=== PATIENT | female | born 1975 | race Asian ===

== ENCOUNTER → 2019-11-30 15:03 | Outpatient (CLI) | payer OTHER, SELFPAY ==
--- NOTE | ~2019-11-30 | MM_ITS ---
EXAMINATION: MM screening [facility] BI w thai HISTORY: Screening mammogram TECHNIQUE: Craniocaudal and mediolateral oblique 3-D tomosynthesis images were obtained and synthetic 2-D images were generated. CAD analysis was submitted and interpreted. COMPARISON: Comparison to multiple prior studies sequentially, with oldest reviewed study dated 12/12. BREAST PARENCHYMAL COMPOSITION: The breasts are heterogeneously dense, which may obscure small masses . FINDINGS: There are benign bilateral breast calcifications. There is no evidence of suspicious mass, calcification, or architectural distortion to suggest malignancy in either breast. There has been no suspicious interval change. IMPRESSION: 1. No mammographic evidence of malignancy. 2. Recommend routine screening mammography in one year. BI-RADS Category 2: Benign finding(s). Reviewed, dictated and finalized at location A. L CAMPAIGN SPECIALIST
== END ==
PROVIDERS: Visit Provider Obstetrics & Gynecology Gynecology
DX: Z12.31 Encounter for screening mammogram for malignant neoplasm of breast (principal)
CPT/HCPCS: 77063; 77067

== ENCOUNTER → 2020-11-08 08:30 | Outpatient (CLI) | payer OTHER, SELFPAY ==
--- NOTE | ~2020-11-08 | US_ITS ---
EXAMINATION: US abdomen complete DATE: 11/08/2020 09:16 INDICATION: Abnormal liver function tests. Right upper quadrant abdominal pain. TECHNIQUE: Multiple grayscale and Doppler ultrasound images of the abdomen were obtained. COMPARISON: Ultrasound 10/03/2019 FINDINGS: The visualized portions of the head, body, and tail of the pancreas are normal. Abdominal a nazia is normal in caliber. The liver is normal without focal lesion. There is normal flow in main por velia vein. The inferior vena cava is normal. The gallbladder is normal in size. No gallstones or gallb ladder wall thickening. There was no sonographic Avery sign. The common duct is normal and measures 5 mm. The kidneys are normal in size. The spleen is normal in size. IMPRESSION: 1. Normal complete abdomen ultrasound. Reviewed, dictated and finalized at location A. ISH AS A SECOND LANGUAGE INSTRUCTOR
== END ==
PROVIDERS: PCP Emergency Medicine; Visit Provider Emergency Medicine
DX: K76.9 Liver disease, unspecified (principal)
CPT/HCPCS: 76700

== ENCOUNTER 2021-01-08 12:05 | Emergency (ER) | payer OTHER, SELFPAY ==
--- NOTE | ~2021-01-08 | CT_ITS ---
EXAMINATION: CT brain wo con EXAM DATE: 01/08/2021 14:13 INDICATION: Severe headache. TECHNIQUE: Spiral CT of the head was performed without contrast. Axial, coronal and sagittal images were reviewed. The dose-length product (DLP) for this examination was 605.33 mGy-cm. The exposure w as tailored according to patient size, and iterative reconstruction (ASIR) was used as additional dos e reduction technique. There is no prior study for comparison. FINDINGS: There is no acute intraparenchymal hemorrhage. No evidence of intraparenchymal brain mass lesion. No evidence of acute infarction. There is no mass effect or midline shift. The ventricles are normal in size. There are no extra-axial collections. There are no acute calvarial fractures. T he orbits are unremarkable. Soft tissue is unremarkable. The visualized sinuses and mastoid air john ls are well aerated. IMPRESSION: 1. No acute intracranial findings. Reviewed, dictated and finalized at location A.
[2021-01-08 12:45] VITALS: BP 116/72; PULSE 82; RESP 18; TEMP 36.6; O2SAT 98
--- NOTE | 2021-01-08 13:43 | ED.HA ---
HPI - Headache General Chief Complaint: Headache Stated Complaint: headache since wednesday Time Seen by Provider: 01/08/21 13:18 History of Present Illness HPI Narrative: Headahc e for the past 4 days . Circumferential. Pounding. Associated with nausea, vomiting, photophobia. Being treated for migraines by her PCP. Given imitrex, but its not working. She has not seen a neurologist or had any imaging done. No weakness, numbness, confusion, fever, vision change. Related Data Allergies Allergy/AdvReac Type Severity Reaction Status Date / Time ENVIRONMENTAL ALLERGENS Allergy Mild Uncoded 05/08/20 08:05 Review of Systems Review of Systems: All systems reviewed & are unremarkable except as noted in HPI and below PMFSH Social History Social History Gender identity (if verbalized by the patient): Female Exam Const: General: no acute distress and alert Orientation/consciousness: patient oriented x3 Other: uncomfortable HENMT: Head: normal to inspection Face and sinus: normal facial exam Eyes: Conjunctivae: conjunctivae normal Pupils: Equal, round and reactive pupils present EOM: EOMs intact bilaterally Neck: Neck: normal visual inspection Resp: Effort & Inspection: normal respiratory effort Cardio: Rate: regular rate Rhythm: regular rhythm GI: GI Palp: Yes Soft to palpation and No Tenderness to palpation present (GI) Neuro: General: patient oriented x3, no focal motor deficits and CN's II-XI intact bilaterally Speech: normal speech Gait exam (Neuro): Normal gait present Extrem: General: normal to inspection Course Vital Signs Vital signs: Vital Signs Temperature 36.6 C 01/08/21 12:45 Pulse Rate 82 01/08/21 12:45 Respiratory Rate 18 01/08/21 12:45 Blood Pressure 116/72 01/08/21 12:45 Pulse Oximetry 98 01/08/21 12:45 Temperature 36.6 C 01/08/21 12:45 Pulse Rate 76 01/08/21 15:09 Respiratory Rate 16 01/08/21 15:09 Blood Pressure 119/75 01/08/21 15:09 Pulse Oximetry 100 01/08/21 15:09 MDM - Headache MDM Narrative Medical decision making narrative: CT negative. Symptoms greatly improved after treatment. Differential Diagnosis Differential diagnosis: Likely migraine, tension headache, subarachnoid hemorrhage, headache and other (mass lesion) Imaging Data Radiologist's impression: ITS Impressions Head CT 01/08/21 14:15 IMPRESSION: 1. No acute intracranial findings. Discharge Plan Discharge Clinical Impression: Migraine Patient Disposition: Home, Self-Care Condition: Stable Instructions: Migraine Headache (ED) Follow-up/Referrals: Nader Patel MD [Primary Care Provider] -
--- NOTE | 2021-01-08 14:10 | PC.NURSE ---
Pt to ct, will medicate per provider order upon return.
--- NOTE | 2021-01-08 14:20 | PC.NURSE ---
Pt back from ct, rn at bedside.
[2021-01-08] MEDS: METOCLOPRAMIDE HCL INJ 10 MG/2 ML VIAL IV PUSH (14:29)
[2021-01-08] MEDS: SODIUM CHLORIDE 0.9% IV 1,000 ML 999 ML IV CONT (14:29)
[2021-01-08] MEDS: KETOROLAC 30 MG/ML VIAL (*BKC) IV PUSH (14:29)
[2021-01-08] MEDS: diphenhydrAMINE HCl INJ 50 MG/ML VIAL 25 MG IV PUSH (14:29)
--- NOTE | 2021-01-08 14:33 | PC.NURSE ---
Pt medicated per provider order at this time.
--- NOTE | 2021-01-08 14:45 | PC.NURSE ---
ABIGAIL perera at bedside discussing results with pt.
[2021-01-08 15:09] VITALS: BP 119/75; PULSE 76; RESP 16; O2SAT 100
== END 2021-01-08 15:10 | disposition home or self-care (01) ==
PROVIDERS: Emergency Provider Emergency Medicine; PCP Emergency Medicine
DX: G43.909 Migraine, unspecified, not intractable, without status migrainosus (principal)
CPT/HCPCS: 70450; 96365; 96375; 99284; J0131; J1200; J1885; J2765; J7030

== ENCOUNTER → 2021-05-08 10:06 | Outpatient (CLI) | payer OTHER, SELFPAY ==
--- NOTE | ~2021-05-08 | MM_ITS ---
EXAMINATION: MM screening [facility] BI w thai HISTORY: Screening TECHNIQUE: Craniocaudal and mediolateral oblique 3-D tomosynthesis images were obtained and synthetic 2-D images were generated. CAD analysis was submitted and interpreted. COMPARISON: Comparison to multiple prior studies sequentially, with oldest reviewed study dated 07/04. BREAST PARENCHYMAL COMPOSITION: The breasts are heterogeneously dense, which may obscure small masses . FINDINGS: There is no evidence of suspicious mass, calcification, or architectural distortion to sugg est malignancy in either breast. There has been no suspicious interval change. IMPRESSION: 1. No mammographic evidence of malignancy. 2. Recommend routine screening mammography in one year. BI-RADS Category 1: Negative Reviewed, dictated and finalized at location A.
== END ==
PROVIDERS: PCP Emergency Medicine; Visit Provider Obstetrics & Gynecology Gynecology
DX: Z12.31 Encounter for screening mammogram for malignant neoplasm of breast (principal)
CPT/HCPCS: 77063; 77067

== ENCOUNTER 2021-06-02 07:34 | Emergency (ER) | payer OTHER, SELFPAY ==
[2021-06-02 07:40] VITALS: BP 109/79; PULSE 96; RESP 15; TEMP 36.2; O2SAT 100
--- NOTE | 2021-06-02 09:30 | ED.WOUNDLAC ---
HPI - Wound/Laceration General Chief Complaint: Wound/Laceration Stated Complaint: dog bite Time Seen by Provider: 06/02/21 09:02 Source: patient Mode of arrival: ambulatory Limitations: no limitations History of Present Illness HPI narrative: This is a 46 year old female that presents to the ER for dog bite to the right hand sustained just prior to arrival. Reports she was walking in her neighborhood and two dogs ran up from behind her and one of them bit her right hand. Reports pain to the area. She is unsure of the dogs vaccination status as the owners put the dogs in the car and drove away after. She is not up to date on tetanus. Denies fever, decreased ROM or numbness. Related Data Allergies Allergy/AdvReac Type Severity Reaction Status Date / Time ENVIRONMENTAL ALLERGENS Allergy Mild Unknown Uncoded 06/02/21 07:42 Review of Systems Review of Systems: CONSTITUTIONAL: Denies fever SKIN: Reports dog bite MUSCULOSKELETAL: Denies joint pain, or myalgia. NEUROLOGIC: Denies numbness All systems reviewed & are unremarkable except as noted in HPI and below PMFSH Past Medical History Medical History (Updated 06/02/21 @ 10:49 by Elvi Guan PA-C) History of hyperlipidemia Social History Social History (Updated 06/02/21 @ 09:33 by Elvi Guan PA-C) Smoking status: Never smoker Gender identity (if verbalized by the patient): Female Exam Narrative: GENERAL: Well-appearing, well-nourished, and in no acute distress. HEAD: Normocephalic, atraumatic. EYES: EOMI. EXTREMITIES: Normal range of motion. No edema or obvious deformity. Normal radial pulses. Normal sensation. Very small (0.5cm) puncture wound to the right third finger distal phalanx palmar surface. The wound just puncture the skin SKIN: Warm, dry, no rash. NEURO: No focal deficits. Alert and oriented x3. PSYCH: Normal mood and affect Course Consultations Consultation #1: Spoke with Malina Phillips about patient who recommends she contact [facility] for further management Date: 06/02/21 Time: 10:44 Vital Signs Vital signs: Vital Signs Temperature 97.1 F L 06/02/21 07:40 Pulse Rate 96 06/02/21 07:40 Respiratory Rate 15 06/02/21 07:40 Blood Pressure 109/79 06/02/21 07:40 Pulse Oximetry 100 06/02/21 07:40 Temperature 97.1 F L 06/02/21 07:40 Pulse Rate 96 06/02/21 07:40 Respiratory Rate 15 06/02/21 07:40 Blood Pressure 109/79 06/02/21 07:40 Pulse Oximetry 100 06/02/21 07:40 MDM - Wound/Laceration MDM Narrative Medical decision making narrative: Patient presents to the emergency department for dog bite sustained just prior to arrival. It was a known dog in her neighborhood. Although she was not able to asked the woodworking shop hand if the dog was up-to-date on its vaccinations. Patient was not up-to-date on tetanus. So she was updated on this today. Her wound was cleansed and covered with a bandage. There is a very minor wound that just punctures the skin on the right third finger. I did speak with Malina Phillips about patient who recommends she contact animal control for further management. Patient is stable and felt appropriate for further outpatient evaluation. She was given warnings to return to the ER Critical Care Time Critical Care Time Critical Care Time: No Discharge Plan Discharge Clinical Impression: Dog bite Qualifiers: Encounter type: initial encounter Qualified Code(s): W54.0XXA - Bitten by dog, initial encounter Patient Disposition: Home, Self-Care Condition: Stable Instructions: Animal Bite (ED) Additional Instructions: Return to the emergency department if you experience fever, redness or swelling of your wound, abnormal drainage from your wound, or any other symptoms that are concerning to you. Apply antibiotic ointment daily. Do not soak the wound. Clean with mild soap and water daily Call [facility] Follow-up with your primary care doctor ligia
[2021-06-02] MEDS: TETANUS,DIPHTHERIA,AC PERTUSSIS ADULT (0.5 ML) BOOSTRIX IM (09:46)
== END 2021-06-02 11:05 | disposition home or self-care (01) ==
PROVIDERS: Emergency Provider Emergency Medicine; PCP Emergency Medicine
DX: S61.252A Open bite of right middle finger without damage to nail, initial encounter (principal); Z23 Encounter for immunization; E78.5 Hyperlipidemia, unspecified; W54.0XXA Bitten by dog, initial encounter
CPT/HCPCS: 90471; 90715; 99282

== ENCOUNTER → 2021-09-23 14:24 | Outpatient (CLI) | payer OTHER, SELFPAY ==
--- NOTE | ~2021-09-23 | US_ITS ---
EXAMINATION: US transvaginal DATE: 09/23/2021 15:01 INDICATION: Postmenopausal bleeding Comparison:No prior studies for comparison. TECHNIQUE: Multiple transabdominal and endovaginal sonographic images of the pelvis performed. FINDINGS: The uterus measures 8 x 3 x 3.8 cm. There is a 4 mm echogenic focus consistent with calcifi cation of the myometrium. The endometrial complex measures 2 mm. The right ovary measures 2.3 x 2 x 1.4 cm and the left ovary measures 2.2 x 1 x 1.4 cm. There are sm all follicles in each ovary. Normal doppler signal in both ovaries. There is no free fluid in the pelvis. There are no abnormal masses seen on either side. IMPRESSION: 1. Unremarkable pelvic ultrasound. Reviewed, dictated and finalized at location A. NTORY PLANNER
== END ==
PROVIDERS: PCP Emergency Medicine; Visit Provider Nurse Practitioner
DX: N95.0 Postmenopausal bleeding (principal); N83.02 Follicular cyst of left ovary; N83.01 Follicular cyst of right ovary
CPT/HCPCS: 76830

== ENCOUNTER 2022-08-07 14:59 | Emergency (ER) | payer OTHER, SELFPAY ==
[2022-08-07 15:08] VITALS: BP 103/70; PULSE 66; RESP 16; TEMP 36.9; O2SAT 100
--- NOTE | 2022-08-07 15:14 | ED.EAR ---
HPI - Ear Problem General Chief complaint: Ear Stated complaint: r earlobe redness/swelling Time Seen by Provider: 08/07/22 15:14 Source: patient Mode of arrival: ambulatory Limitations: no limitations History of Present Illness HPI Narrative: 47-year-old female presents with redness, swelling, tenderness to right earlobe. The patient had ears pierced approximately 2 weeks ago. Has been using cleaning solution that was given to her at facility. Denies drainage. Has not removed the earring. All systems reviewed and negative except as noted above. Related Data Home Medications Medication Instructions Recorded Confirmed rosuvastatin 10 mg tablet 10 mg PO DAILY 08/07/22 08/07/22 Allergies Allergy/AdvReac Type Severity Reaction Status Date / Time ENVIRONMENTAL ALLERGENS Allergy Mild Unknown Uncoded 08/07/22 15:07 Review of Systems Review of Systems: CONSTITUTIONAL: Denies fever, chills, or sweats. EYES: Denies visual changes, redness, or discharge. ENT: Denies rhinorrhea, congestion, sore throat, or otalgia. CARDIOVASCULAR: Denies chest pain, palpitations, or edema. RESPIRATORY: Denies cough or dyspnea. GASTROINTESTINAL: Denies abdominal pain, nausea, vomiting, or diarrhea. GENITOURINARY: Denies dysuria or hematuria. SKIN: Denies rash or itching. Reports redness, swelling, tenderness to right earlobe. MUSCULOSKELETAL: Denies back pain, joint pain, or myalgia. NEUROLOGIC: Denies headache, numbness, or weakness. PSYCHIATRIC: Denies anxiety or depression. All other systems reviewed are negative, except as documented in HPI. [facility] Past Medical History Medical History (Updated 08/07/22 @ 15:13 by Elizabet Green NP) History of hyperlipidemia Social History Social History (Updated 06/02/21 @ 09:33 by Elvi Guan PA-C) Smoking status: Never smoker Gender identity (if verbalized by the patient): Female Comments At time of signature, agree with nursing past medical, surgical, social and family history. There is no relevant family history pertinent to the presenting complaint. Exam Narrative: GENERAL: This is a well-nourished, well-developed patient, in no apparent distress. HEAD: normocephalic, atraumatic. EYES: PERRL. Sclera clear/white. Vision is grossly intact. EARS: Mild erythema, swelling to right earlobe. No fluctuance concerning for abscess. No drainage noted. NOSE: External nose normal NECK: Neck supple, non-tender without lymphadenopathy, masses or thyromegaly. CARDIOVASCULAR: Regular rate and rhythm without murmurs, gallops, or rubs. RESPIRATORY: Clear to auscultation. Breath sounds equal bilaterally. No wheezes, rales, or rhonchi. SKIN: warm, Dry, intact with no suspicious lesions or rash, good texture and turgor. NEURO: awake, alert, and oriented to person, place and time. There were no obvious focal neurologic abnormalities. EXTREMITIES: No joint tenderness, effusion, or edema noted. Course Course Level of Care: Express Care Visit Vital Signs Vital signs: Vital Signs Temperature 36.9 C 08/07/22 15:08 Pulse Rate 66 08/07/22 15:08 Respiratory Rate 16 08/07/22 15:08 Blood Pressure 103/70 08/07/22 15:08 Pulse Oximetry 100 08/07/22 15:08 Temperature 36.9 C 08/07/22 15:08 Pulse Rate 66 08/07/22 15:08 Respiratory Rate 16 08/07/22 15:08 Blood Pressure 103/70 08/07/22 15:08 Pulse Oximetry 100 08/07/22 15:08 Review Medical Decision Making MDM Narrative Medical decision making narrative: Patient is aware of diagnosis, understands and agrees to treatment plan. Anticipatory guidance given. Patient agrees to follow-up as directed and is aware of reasons to seek care at the emergency department. Portions of this record may have been created with voice recognition software Mild erythema noted to right earlobe surrounding hearing. Will prescribe topical Bactroban. Recommend follow-up with PCP and removing hearing if symptoms not improving.
== END 2022-08-07 15:16 | disposition home or self-care (01) ==
PROVIDERS: Emergency Provider Nurse Practitioner Family; PCP Emergency Medicine
DX: H60.391 Other infective otitis externa, right ear (principal); E78.5 Hyperlipidemia, unspecified
CPT/HCPCS: 99213; G0463

== ENCOUNTER → 2022-12-11 13:27 | Outpatient (CLI) | payer OTHER, SELFPAY ==
--- NOTE | ~2022-12-11 | MM_ITS ---
EXAMINATION: MM screening [facility] BI w thai HISTORY: Screening mammogram TECHNIQUE: Craniocaudal and mediolateral oblique 3-D tomosynthesis images were obtained and synthetic 2-D images were generated. CAD analysis was submitted and interpreted. COMPARISON: 05/08/2021, 11/30/2019, 09/12/2018 bilateral screening mammogram examinations BREAST PARENCHYMAL COMPOSITION: The breasts are heterogeneously dense, which may obscure small masses . FINDINGS: Degenerative bilateral punctate benign-appearing microcalcifications. There is no evidence of suspicious mass, calcification, or architectural distortion to suggest malignancy in either breast . There has been no suspicious interval change. IMPRESSION: 1. No mammographic evidence of malignancy. 2. Recommend routine screening mammography in one year. BI-RADS Category 2: Benign finding(s). Reviewed, dictated and finalized at location B. RICAL CONTROL MACHINE OPERATOR
== END ==
PROVIDERS: PCP Emergency Medicine; Visit Provider Obstetrics & Gynecology Gynecology
DX: Z12.31 Encounter for screening mammogram for malignant neoplasm of breast (principal)
CPT/HCPCS: 77063; 77067

== ENCOUNTER → 2022-12-21 12:11 | Outpatient (CLI) | payer OTHER, SELFPAY ==
--- NOTE | ~2022-12-21 | DEXA_ITS ---
Bone Density Report Name: DERICK HEREDIA Age: 47 Sex: Female Ethnicity: White Date of : 1975 Indication: postmenopausal; Referring Provider: KEL, MICHAELA Study: Bone densitometry was performed. Exam Date: December 21, 2022 Accession number: [id number] Bone Density: Region BMD T-score Z-score Classification AP Spine (L1-L4) 0.936 -1.0 -0.3 Normal Femoral Neck (Left) 0.679 -1.5 -0.8 Osteopenia Total Hip (Left) 0.843 -0.8 -0.4 Normal Femoral Neck (Right) 0.708 -1.3 -0.6 Osteopenia Total Hip (Right) 0.849 -0.8 -0.3 Normal Total Hip Mean 0.846 -0.8 -0.4 Normal World Health Organization criteria for BMD impression classify patients as: Normal (T-score at or above -1.0), Osteopenia (T-score between -1.0 and -2.5), or Osteoporosis (T-score at or below -2.5). 10-year Fracture Risk(1): Major Osteoporotic Fracture 4.2% Hip Fracture 0.4% Reported Risk Factors: [place] (), Neck BMD=0.679, BMI=22.4 (1) FRAX(R) Version 3.08. Fracture probability calculated for an untreated patient. Fracture probability may be lower if the patient has received treatment. Clinical Information Provided by Patient: Has used the following medications: Vitamin D, Calcium Patient maximum height was 65 Menopause Age: 45 Drinks caffeinated beverages Onset of menses at age 12 Number of children 2 Impression: The patient has low bone mass, based on the Left Femoral Neck T-score. The patient has an estimated ten-year risk of hip fracture of 0.4% and an estimated ten-year risk of major fracture of 4.2%, based on the WHO FRAX algorithm. Discussion: BONE DENSITY IS LOW AT ONE OR MORE SKELETAL SITES. This patient's lowest T-score is low at one or more skeletal sites. It meets the World Health Organization's (WHO) criteria for ?low bone mass? (T-score between -1.0 and -2.5). The patient's 10-year risk of fracture as calculated by FRAX is less than the threshold where pharmacological therapy is recommended by the National Osteoporosis Foundation (NOF). However, all treatment decisions require clinical judgment and consideration of individual patient factors, including patient preferences, comorbidities, previous drug use, risk factors not captured in the FRAX model (e.g., frailty, falls, vitamin D deficiency, increased bone turnover, interval significant decline in bone density) and possible under or overestimation of fracture risk by FRAX. The patient should follow a healthful lifestyle (good nutrition with adequate calcium and vitamin D, and appropriate weight-bearing exercise). Follow-Up: Consider repeating this study in 2 to 3 years to reassess this patient's status, or sooner if there is some new clinical indication. Reported by: FALGUNI on 12/21/2022 12:28:00 PM.
== END ==
PROVIDERS: PCP Emergency Medicine; Visit Provider Nurse Practitioner
DX: Z78.0 Asymptomatic menopausal state (principal); M85.852 Other specified disorders of bone density and structure, left thigh; M85.851 Other specified disorders of bone density and structure, right thigh
CPT/HCPCS: 77080

== ENCOUNTER 2023-01-01 00:52 | Day surgery (SDC) | payer OTHER, SELFPAY ==
[2022-12-22 13:27] VITALS: BMI 24.1
[2023-01-01 11:08] VITALS: BP 103/57; PULSE 83; RESP 16; TEMP 36.4; O2SAT 98
[2023-01-01] MEDS: LACTATED RINGERS 1,000 ML 150 ML IV CONT (11:18)
--- NOTE | 2023-01-01 11:30 | WPDANESEPPF ---
Anes - Initial Pre Proc Eval Procedure: Operation Date: 01/01/23 12:00 Proposed Procedures p Screening Colonoscopy - Willie Blue MD Date/Time: 01/01/23 11:30 Surgeon: Willie Blue MD Pre Op Diagnosis: neoplasm screening Patient Data Age: 47 Gender: F Height: 1.63 m Weight: 57.5 kg Last Vital Signs Temp 97.5 F L 01/01/23 11:08 Pulse 83 01/01/23 11:08 Resp 16 01/01/23 11:08 BP 103/57 L 01/01/23 11:08 Pulse Ox 98 01/01/23 11:08 O2 Del Method Room Air 01/01/23 11:08 Allergies Allergy/AdvReac Type Severity Reaction Status Date / Time No Known Allergies Allergy Verified 01/01/23 11:07 Home Medications Medication Instructions Recorded Confirmed Type rosuvastatin 10 mg tablet 10 mg PO DAILY 08/07/22 01/01/23 History Patient hx anesthesia problems: none Family hx anesthesia problems: none Results Review: All pre-operative results and documents have been reviewed as part of the pre-operative evaluation. [facility] Past Medical History Medical History (Updated 08/08/22 @ 00:01 by Sparkle Perdue) History of hyperlipidemia Social History Social History (Updated 06/02/21 @ 09:33 by Elvi Guan PA-C) Smoking status: Never smoker Substance use type: does not use Living arrangements: with family Gender identity (if verbalized by the patient): Female Spiritual care concerns: No Anes - Eval Final PreProcedure Day of Procedure 01/01/23 11:30 Patient weight: normal Heart: regular rate and rhythm Lungs: clear to auscultation Airway: Mallampati scale class II Neurological: alert and oriented Last oral intake: >/= 8 hours ASA classification: II Emergent: no Anesthetic plan: proceed Anesthesia type and monitoring: general GIVS and standard monitoring Results Review: All pre-operative results and documents have been reviewed as part of the pre-operative evaluation. Informed Consent: The patient's anesthetic plan and its attendant risks and benefits were discussed with the patient/family/POA. Questions were solicited and answers provided to the satisfaction of the patient/family/POA.
[2023-01-01 11:45] VITALS: BP 93/59; PULSE 71; RESP 19; O2SAT 100
--- NOTE | 2023-01-01 11:46 | PM.HPGS ---
History of Present Illness History of Present Illness Consent: Risks, benefits, and alternatives have been discussed and questions answered. Patient agrees to proceed with procedure. Chief complaint: neoplasm screening Narrative: Kizzy Salcedo is a 47 year old female who was referred for colon cancer screening. Review of Systems Review of Systems: All systems reviewed & are unremarkable except as noted in HPI and below PMFSH Past Medical History Medical History History of hyperlipidemia Social History Social History Smoking status: Never smoker Substance use type: does not use Living arrangements: with family Gender identity (if verbalized by the patient): Female Spiritual care concerns: No Meds Home Medications and Allergies Home Medications Medication Instructions Recorded Confirmed Type rosuvastatin 10 mg tablet 10 mg PO DAILY 08/07/22 01/01/23 History Allergies Allergy/AdvReac Type Severity Reaction Status Date / Time No Known Allergies Allergy Verified 01/01/23 11:07 Vital Signs Vital Signs - 24 hr 01/01/23 11:08 Temperature 36.4 C L Pulse Rate 83 Respiratory Rate 16 Blood Pressure 103/57 L Pulse Oximetry 98 Oxygen Delivery Room Air Exam Const: General: alert Orientation/consciousness: patient oriented x3 Resp: Auscultation: clear to auscultation bilaterally Cardio: Rhythm: regular rhythm GI: GI Palp: Yes Soft to palpation and No Tenderness to palpation present (GI) Neuro: General: patient oriented x3 Assessment and Plan Assessment and plan (1) Colon cancer screening: Code(s): Z12.11 - Encounter for screening for malignant neoplasm of colon Status: Acute Assessment and Plan: Colonoscopy with possible biopsy or polypectomy or cautery or injection of substances.
[2023-01-01 11:55] VITALS: BP 113/64; PULSE 72; RESP 20; O2SAT 98
[2023-01-01 12:05] VITALS: BP 111/70; PULSE 62; RESP 18; O2SAT 99
== END 2023-01-01 12:16 | disposition home or self-care (01) ==
PROVIDERS: PCP Emergency Medicine; Referring Provider Obstetrics & Gynecology Gynecology; Visit Provider Internal Medicine Gastroenterology
PROC: 0DJD8ZZ Inspection of Lower Intestinal Tract, Via Natural or Artificial Opening Endoscopic (ICD-10-PCS; CPT 45378; principal; 2023-01-01 12:00)
DX: Z12.11 Encounter for screening for malignant neoplasm of colon (principal); K64.8 Other hemorrhoids; E78.5 Hyperlipidemia, unspecified
CPT/HCPCS: 45378; J2704; J7120

== ENCOUNTER → 2023-02-25 09:13 | Outpatient (CLI) | payer OTHER, SELFPAY ==
--- NOTE | ~2023-02-25 | US_ITS ---
EXAMINATION: US abdomen complete DATE: 02/25/2023 09:54 INDICATION: Upper abdominal pain. Right flank pain and back pain. TECHNIQUE: Multiple grayscale and Doppler ultrasound images of the abdomen were obtained. COMPARISON: Abdomen ultrasound 11/28/2020 FINDINGS: Abdominal aorta is normal in caliber. The visualized portions of the head, body, and tail o f the pancreas are normal. The liver is normal without focal lesion. No liver surface nodularity. The re is normal flow in main portal vein. The gallbladder is normal in size. No gallstones or gallbladde r wall thickening. There was no sonographic Avery sign. The common duct is normal and measures 3 mm. Inferior vena cava is normal. The spleen is normal in size. The kidneys are normal in size. IMPRESSION: 1. Normal complete abdomen ultrasound. Reviewed, dictated and finalized at location E.
== END ==
PROVIDERS: PCP Emergency Medicine; Visit Provider Emergency Medicine
DX: R31.21 Asymptomatic microscopic hematuria (principal); R80.9 Proteinuria, unspecified; R10.9 Unspecified abdominal pain
CPT/HCPCS: 76700

== ENCOUNTER → 2023-07-10 08:24 | Outpatient (CLI) | payer OTHER, SELFPAY ==
--- NOTE | ~2023-07-10 | US_ITS ---
US abdomen complete DATE: 07/10/2023 09:04 INDICATION: Upper abdominal pain TECHNIQUE: Real-time imaging and Doppler analysis of the abdomen COMPARISON: 02/25/2023 abdominal ultrasound examination FINDINGS: No hepatic or pancreatic space-occupying mass lesion. Normal hepatopedal portal venous flow direction. No gallstones or gallbladder wall thickening. Common bile duct measures 3.5 mm, normal. N o renal mass lesion or hydronephrosis. Normal splenic size. The abdominal aorta and inferior vena cav a are unremarkable. IMPRESSION: No significant abnormality Reviewed, dictated and finalized at Location A. Reviewed, dictated and finalized at location A. IMPRESSION: No significant abnormality
== END ==
PROVIDERS: PCP Obstetrics & Gynecology Gynecology; Visit Provider Emergency Medicine
DX: R10.10 Upper abdominal pain, unspecified (principal)
CPT/HCPCS: 76700

== ENCOUNTER 2023-11-08 17:11 | Emergency (ER) | payer OTHER, SELFPAY ==
[2023-11-08 17:16] VITALS: BP 94/60; PULSE 56; RESP 16; TEMP 36.8; O2SAT 100
--- NOTE | 2023-11-08 17:42 | ED.URI ---
HPI - URI/Sore Throat General Chief Complaint: Upper Respiratory Infection Stated Complaint: Sore Throat;Headache Time Seen by Provider: 11/08/23 17:30 Source: patient and RN notes reviewed Mode of arrival: ambulatory Limitations: no limitations History of Present Illness HPI Narrative: Patient presents today complaining of 5 day history of rhinorrhea, sore throat, body aches, headache, decreased appetite. Denies fever or cough. She has taken Tylenol with some mild relief. Son is sick with similar symptoms Related Data Home Medications Medication Instructions Recorded Confirmed rosuvastatin 10 mg tablet 10 mg PO DAILY 08/07/22 11/08/23 Allergies Allergy/AdvReac Type Severity Reaction Status Date / Time No Known Allergies Allergy Verified 11/08/23 17:36 Review of Systems Review of Systems: CONSTITUTIONAL: Denies fever, or sweats.+ body aches, chills EYES: Denies visual changes, redness, or discharge. ENT: Denies congestion, or otalgia.+ rhinorrhea, sore throat CARDIOVASCULAR: Denies chest pain, palpitations, or edema. RESPIRATORY: Denies cough or dyspnea. GASTROINTESTINAL: Denies abdominal pain, nausea, vomiting, or diarrhea.+ decreased appetite GENITOURINARY: Denies dysuria or hematuria. SKIN: Denies rash, itching, or wounds. MUSCULOSKELETAL: Denies back pain, joint pain, or myalgia. NEUROLOGIC: Denies numbness, tingling, or weakness.+ headache PSYCH: Denies depression or anxiety. PMFSH Past Medical History Medical History History of hyperlipidemia Social History Social History Smoking status: Never smoker Substance use type: does not use Living arrangements: with family Gender identity (if verbalized by the patient): Female Spiritual care concerns: No Comments At time of signature, I have reviewed and agree with nursing past medical, surgical, social and family history unless otherwise noted. Please see nursing chart for further information. There is no relevant family history pertinent to the presenting complaint Exam Narrative: GENERAL: Well-appearing, well-nourished, and in no acute distress. HEAD: Normocephalic, atraumatic. EYES: EOMI. No redness or drainage. Conjunctivae normal. ENT: Mucous membranes pink and moist. Nares congested with rhinorrhea. TMs normal bilaterally. Throat normal. Uvula midline. NECK: Normal AROM. Supple. No lymphadenopathy. CHEST: No respiratory distress. Clear to auscultation. HEART: Regular rate and rhythm. No murmur appreciated. EXTREMITIES: Normal range of motion. No edema. SKIN: Warm, dry, no rash. Capillary refill normal. Normal skin turgor. NEURO: No focal deficits. Alert and oriented x3. Gait steady. PSYCH: Normal affect. No signs of depression or anxiety. Course Course Level of Care: Express Care Visit Vital Signs Vital signs: Vital Signs Temperature 98.3 F 11/08/23 17:16 Pulse Rate 56 L 11/08/23 17:16 Respiratory Rate 16 11/08/23 17:16 Blood Pressure 94/60 L 11/08/23 17:16 Pulse Oximetry 100 11/08/23 17:16 Oxygen Delivery Room Air 11/08/23 17:16 Temperature 98.3 F 11/08/23 17:16 Pulse Rate 56 L 11/08/23 17:16 Respiratory Rate 16 11/08/23 17:16 Blood Pressure 94/60 L 11/08/23 17:16 Pulse Oximetry 100 11/08/23 17:16 Oxygen Delivery Room Air 11/08/23 17:16 Reviewed MDM - URI/Sore Throat MDM Narrative Medical decision making narrative: Testing negative. Son is positive for strep throat and influenza. Strep culture pending. Patient may have had influenza, but is currently testing negative. Discussed continuing [id number] medication and staying hydrated. Anticipatory guidance given. No prescription medications indicated at this time. Differential Diagnosis Differential diagnosis: Likely upper respiratory infection, sinusitis, viral infection, influe
== END 2023-11-08 18:13 | disposition home or self-care (01) ==
PROVIDERS: Emergency Provider Nurse Practitioner; PCP Emergency Medicine
DX: J11.1 Influenza due to unidentified influenza virus with other respiratory manifestations (principal); Z20.822 Contact with and (suspected) exposure to COVID-19; E78.5 Hyperlipidemia, unspecified
CPT/HCPCS: 87081; 87426; 87804; 87880; 99213; G0463

== ENCOUNTER → 2023-11-09 08:20 | Outpatient (CLI) | payer OTHER, SELFPAY ==
--- NOTE | ~2023-11-09 | MMUS_ITS ---
EXAMINATION: MM diagnostic shane BI w thai, US breast RT limited HISTORY: Pain and swelling of lateral right breast TECHNIQUE: ML, MLO and CC 3-D tomosynthesis images of both breasts were performed and synthetic 2-D i mages were generated. CAD analysis was submitted and interpreted. High resolution upper outer quadran t and lower outer quadrant right breast ultrasound was performed. COMPARISON: 12/11/2022, 05/08/2021, 11/30/2019 bilateral screening mammogram examinations BREAST PARENCHYMAL COMPOSITION: The breasts are heterogeneously dense, which may obscure small masses . FINDINGS: MAMMOGRAPHIC FINDINGS: Occasional scattered bilateral . Benign appearing punctate and circular microcalcifications are noted again. No suspicious mass or architectural distortion, malignant calcification, skin thickening or r etraction or significant new or developing density is detected. ULTRASOUND: No suspicious mass or shadowing, cyst or other sylvian sonographic abnormalities detected in the uppe r outer or lower outer quadrants of the right breast. IMPRESSION: 1. Benign finding; no mammographic or sonographic evidence of malignancy 2. Routine annual mammographic screening is recommended BI-RADS Category 2: Benign finding(s). Reviewed, dictated and finalized at location A. RACT ENGINEER IMPRESSION: 1. Benign finding; no mammographic or sonographic evidence of malignancy 2. Routine annual mammographic screening is recommended BI-RADS Category 2: Benign finding(s).
== END ==
PROVIDERS: PCP Nurse Practitioner; Visit Provider Nurse Practitioner
DX: R92.8 Other abnormal and inconclusive findings on diagnostic imaging of breast (principal)
CPT/HCPCS: 76642; 77062; 77066; G0279

== ENCOUNTER → 2023-11-09 08:28 | Outpatient (CLI) | payer OTHER, SELFPAY ==
--- NOTE | ~2023-11-09 | US_ITS ---
EXAMINATION: US transvaginal DATE: 11/09/2023 08:54 INDICATION: Family history of ovarian cancer TECHNIQUE: Multiple endovaginal sonographic images of the pelvis were obtained. COMPARISON: 07/24/2021 FINDINGS: The uterus measures 7.6 x 3.1 x 5.0 cm. The endometrial complex measures 2 mm. The left ova ry is not visualized however no left adnexal abnormality is seen. The right ovary measures 1.8 x 1.1 x 2.1 cm. There is normal vascular flow in the right ovary. There is no free fluid in the pelvis. IMPRESSION: 1. Unremarkable pelvic ultrasound. Reviewed, dictated and finalized at location L. TION TECHNICIAN
== END ==
PROVIDERS: PCP Nurse Practitioner; Visit Provider Nurse Practitioner
DX: Z80.41 Family history of malignant neoplasm of ovary (principal)
CPT/HCPCS: 76830

== ENCOUNTER 2023-12-24 07:47 | Outpatient (CLI) | payer OTHER, SELFPAY ==
--- NOTE | ~2023-12-24 | NM_ITS ---
EXAMINATION: NM hepatobiliary wo pharm DATE: 12/24/2023 10:08 INDICATION: Upper abdominal pain COMPARISON: None. TECHNIQUE: 1.8 mCi Tc-99m mebrofenin (Choletec) was administered intravenously. Scintigraphic images of the abdomen were obtained for one hour. At the 1 hour time point, the patient drank 8 oz Ensure, and imaging was continued for 60 minutes. Gallbladder ejection fraction was calculated by the technol ogist. FINDINGS: There is normal clearance of radiotracer from the blood pool. There is homogeneous tracer u ptake by the liver. Activity progresses to the bowel and gallbladder. The gallbladder ejection fract ion (GBEF) is 57%. Note that with this technique, normal GBEF >= 33%. IMPRESSION: 1. Normal hepatobiliary scan. Reviewed, dictated and finalized at location A.
== END 2023-12-24 07:48 | disposition home or self-care (01) ==
PROVIDERS: PCP Emergency Medicine; Visit Provider Emergency Medicine
DX: R10.10 Upper abdominal pain, unspecified (principal)
CPT/HCPCS: 78226; A9537

== ENCOUNTER 2024-05-15 15:49 | Emergency (ER) | payer OTHER, SELFPAY ==
--- NOTE | 2024-05-15 15:52 | ED.URI ---
HPI - URI/Sore Throat General Chief Complaint: Upper Respiratory Infection Stated Complaint: Covid/Strep Symptoms Time Seen by Provider: 05/15/24 15:51 Source: patient Mode of arrival: ambulatory Limitations: no limitations History of Present Illness HPI Narrative: Kizzy is a 48-year-old female patient presenting to the clinic today with complaints of sore throat, nasal congestion, cough for the past week. She reports she tested positive for COVID on Wednesday of last week. States she has had a sore throat for the past week but her son just tested positive for strep today so she wants to be tested. She denies any fever, chills, or body aches currently. Related Data Home Medications Medication Instructions Recorded Confirmed rosuvastatin 10 mg tablet 10 mg PO DAILY 08/07/22 11/08/23 nirmatrelvir 300 mg (150 mg ea PO 05/15/24 x2)-ritonavir 100 mg tablet,dose pack (Paxlovid) Allergies Allergy/AdvReac Type Severity Reaction Status Date / Time No Known Allergies Allergy Verified 05/15/24 16:12 Review of Systems Review of Systems: Pertinent positives per HPI. Patient denies any fever, chills, rash, headache, visual changes, dizziness,shortness of breath, chest pain, palpitations, nausea, vomiting, diarrhea, constipation, abdominal pain, or any urinary issues. PMFSH Past Medical History Medical History History of hyperlipidemia Social History Social History Smoking status: Never smoker Substance use type: does not use Living arrangements: with family Gender identity (if verbalized by the patient): Female Spiritual care concerns: No Comments At the time of my signature, I reviewed and agree with the nursing past medical, surgical, social, and family history. There is no relevant family history pertinent to the patient complaint. Exam Narrative: General: Well-developed, well nourished, in no apparent distress Head: Normocephalic, atraumatic Eyes: Pupils equally round and reactive to light bilaterally, EOM intact, sclera and conjunctive clear, no discharge, lids normal Ears: TMs intact and clear, ear canals clear, no drainage, grossly hearing normal. Nose: Nares patent, clear nasal discharge, no inflammation, no sinus tenderness. Mouth: Oropharynx without lesions or masses, good dentition, MMM. Neck: Supple, trachea midline, no enlargement of anterior or posterior cervical nodes, no thyroid masses or goiter palpable. Cardio: Regular rate and rhythm, s1 and s2 normal, no murmur appreciated. Resp: Clear to auscultation bilaterally anteriorly and posteriorly, no rhonchi, rales, wheezing or rubs Course Course Emergency Course: Portions of this record may have been created with voice recognition software. Level of Care: Express Care Visit Vital Signs Vital signs: Vital Signs Temperature 36.3 C L 05/15/24 16:30 Pulse Rate 71 05/15/24 16:30 Respiratory Rate 16 05/15/24 16:30 Blood Pressure 93/70 L 05/15/24 16:30 Pulse Oximetry 100 05/15/24 16:30 Temperature 36.3 C L 05/15/24 16:30 Pulse Rate 71 05/15/24 16:30 Respiratory Rate 16 05/15/24 16:30 Blood Pressure 93/70 L 05/15/24 16:30 Pulse Oximetry 100 05/15/24 16:30 Vital signs reviewed MDM - URI/Sore Throat MDM Narrative Medical decision making narrative: At the time of visit patient is resting comfortably on the exam table. Patient appears to be nontoxic. Labs: Strep test was obtained and negative in the clinic today. We will send strep culture. Plan: I suspect patient has URI/pharyngitis/recent COVID. We will send strep for culture. Supportive measures were discussed with the patient and they voiced understanding discharge instructions and agrees to treatment plan. Return precautions reviewed Differential Diagnosis Differential diagnosis: Likely upper respiratory i
[2024-05-15 16:30] VITALS: BP 93/70; PULSE 71; RESP 16; TEMP 36.3; O2SAT 100
[2024-05-15 16:33] LABS: EDSTREPNEGPOS1 Presumptive Negative
== END 2024-05-15 16:43 | disposition home or self-care (01) ==
PROVIDERS: Emergency Provider Nurse Practitioner Family; PCP Emergency Medicine
DX: J06.9 Acute upper respiratory infection, unspecified (principal); J02.9 Acute pharyngitis, unspecified; Z86.16 Personal history of COVID-19; E78.5 Hyperlipidemia, unspecified
CPT/HCPCS: 87081; 87880; 99213; G0463

== ENCOUNTER 2024-09-14 14:33 | Outpatient (CLI) | payer OTHER, BC, SELFPAY ==
--- NOTE | ~2024-09-14 | US_ITS ---
EXAMINATION: US thyroid DATE: 09/14/2024 14:49 INDICATION: Hypothyroidism. TECHNIQUE: Multiple ultrasound images of the thyroid were obtained. COMPARISON: None. FINDINGS: The right thyroid lobe measures 5.0 x 1.5 x 2.1 cm. The left thyroid lobe measures 5.5 x 1.2 x 1.8 c m. There is normal echotexture and echogenicity throughout the thyroid gland. No discrete nodules id entified. Normal vascular flow is present. IMPRESSION: 1. Normal thyroid. Reviewed, dictated and finalized at location A. SMAN/OWNER IMPRESSION: 1. Normal thyroid.
== END 2024-09-14 14:34 | disposition home or self-care (01) ==
LOC: MICIMG 14:34
PROVIDERS: PCP Emergency Medicine; Visit Provider Emergency Medicine
DX: E03.9 Hypothyroidism, unspecified (principal)
CPT/HCPCS: 76536

== ENCOUNTER 2024-10-31 08:04 | Outpatient (CLI) | payer OTHER, BC, SELFPAY ==
--- NOTE | ~2024-10-31 | CT_ITS ---
CT of the Abdomen: Indication: Right upper quadrant pain Technique: 2.5 mm axial scans were obtained through the abdomen following intravenous administration of 100 cc of Omnipaque 350. Dose reduction technique was used on this scan by utilizing automated ex posure control and iterative reconstruction technique. The dose-length product (DLP) was 230.40 mGy-c m. Findings: Scans through the lung bases are unremarkable. The liver, spleen, pancreas, gallbladder, adrenals and kidneys are within normal limits. No evidence of aortic aneurysm. No lymphadenopathy. Visualized bowel loops are unremarkable. No ascites. Impression: No significant abnormalities seen. Reviewed, dictated and finalized at location M. L BUILDER Impression: No significant abnormalities seen.
== END 2024-10-31 08:05 | disposition home or self-care (01) ==
LOC: MICIMG 08:04
PROVIDERS: PCP Emergency Medicine; Visit Provider Surgery
DX: R10.11 Right upper quadrant pain (principal)
CPT/HCPCS: 74160; Q9967

== ENCOUNTER 2024-11-15 09:30 | Outpatient (CLI) | payer OTHER, BC, SELFPAY ==
--- OUTSIDE RECORDS SUMMARY | 2024-11-15 10:12 | XMS_ITS | Clinical Summary ---
Author Organization [facility] Address [address] [place] [address] Care Team Providers Care Sales Representative Education Courses Name Role Phone Nader Patel MD Primary Care Provider [phone] Allergies No known active allergies Medications rosuvastatin (CRESTOR) 10 mg tablet Take 10 mg by mouth daily 2 Active vit C/E/Zn/coppr/lutein /zeaxan (PRESERVISION AREDS-2 ORAL) Take 2 capsules by mouth daily Active topiramate (TOPAMAX) 50 mg tabletIndications:C hronic migraine without aura without status migrainosus, not intractable Take half tablet (25 mg) po twice a day for one week, then one tablet po twice a day 60 tablet 3 2 Active rizatriptan ANIMAL NURSE (MAXALT-ANIMAL NURSE) 10 mg disintegrating tabletIndications:M igraine Take 1 tablet (10 mg total) by mouth once as needed for migraine for up to 1 dose May repeat in 2 hours if unresolved. Do not exceed 30 mg in 24 hours. 9 tablet 3 2 Active Active Problems Problem Noted Date Diagnosed Date Chronic migraine without aur a without status migrainosus, not intractable 09/12/2022 Medical History Medical History Date Comments High cholesterol Migraine Social History Tobacco Use Types Packs/Day Years Used Date Smoking Tobacco: Never Tobacco Cessation:Counseling Given: Not Answered Personal Safety Answer Date Recorded Getting School Help Needed Not on file 12/17 Comments Unknown Sex and Gender Information Value Date Recorded Sex Assigned at Not on file Legal Sex Female 4:49 AM INCUBATOR OPERATOR Gender Identity Not on file Sexual Orientation Not on file Obstetrics History Last Filed Vital Signs Vital Sign Reading Time Taken Comments Blood Pressure 90/58 09/11/2022 9:26 AM INCUBATOR OPERATOR Pulse 72 09/11/2022 9:26 AM INCUBATOR OPERATOR Temperature - - Respiratory Rate - - Oxygen Saturation 97% 09/11/2022 9:26 AM INCUBATOR OPERATOR Inhaled Oxygen Concentration - - Weight 62.1 kg (137 lb) 09/11/2022 9:26 AM INCUBATOR OPERATOR Height 165.1 cm (5' 5 ) 09/11/2022 9:26 AM INCUBATOR OPERATOR Body Mass Index 22.8 09/11/2022 9:26 AM INCUBATOR OPERATOR Plan of Treatment Health Maintenance Due Date Last Done Comments Breast Cancer Screening-Mammogram 1973 Cervical Cancer Screening 1973 Colon Cancer Screening-Colonoscopy 1973 Depression Screening 1973 Hepatitis C Screening 1973 Hepatitis B Screening 1991 Regular Well Visit/Exam 18-64 1991 Zoster Vaccine (1 of 2) 2023 Covid-19 Vaccine (4 - 2023-2 5 season) 2024 09/16/2021, 01/22/2021, 12/29/2020 Influenza Vaccine (#1) 2024 , 06/17/2020 DTaP/Tdap/Td Vaccine (2 - Td or Tdap) 06/02/2031 06/02/2021 Pneumococcal vaccine <65 Aged Out No longer eligible based on patient's age to complete this topic Insurance [facility] [id number] Care Teams Sales Representative Education Courses Relationship Specialty Start Date End Date Nader Patel MD [address] [place] [address] PCP - General Family Medicine 04/24/22
--- OUTSIDE RECORDS SUMMARY | 2024-11-15 10:12 | XMS_ITS | Clinical Summary ---
Author Organization [facility] [employer] [facility] Address [address] [address] Care Team Providers Care Experimental Assembler Name Role Phone Ivone Haynes MD Primary Care Provider [phone] Source Comments [facility],non-owned Affiliates and Associated Physician Practices is amultiple site organization consisting of ambulatory clinics and hospital sitesin [place], [place], [place] and [place]. This disclosure is being madepursuant to the Care Everywhere program and may not contain all information available regarding this patient. Last updated 18.[facility] Allergies No known active allergies Medications * Be aware that medications may not be up to date on this document. Alwaysverify current medications with the patient. Medication Sig Dispensed Refills Start Date End Date Status topiramate (TOPAMAX) 25 MG tablet Take 25 mg by mouth once daily 11/21/2020 Active ergocalciferol (DRISDOL) 1.25 MG (36941 UT) capsule Take 1 capsule by mouth every 7 days Active rosuvastatin (CRESTOR) 10 MG tablet Take 10 mg by mouth once daily 11/01/2020 Active LUTEIN PO Active tacrolimus (PROTOPIC) 0.1 % ointmentIndications: Photosensitivity dermatitis Apply to face and neck two times daily. 30 days supply. 100 g 3 12/02/2020 Active Additional Information Patient not taking.Reported on 02/21/2021 Lancets Misc. 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 [place] skin care advised To r/o nutritional deficiency, plan to check niacin level Unlikely med related as she only takes Vitamin D and rousvastatin. started rousvastatin 2 wks ago and rash was already present, no hx of OCP use Dry eyes 09/15/2019 Hypertriglyceridemia 09/15/2019 Immunizations Name Administration Dates Next Due INFLUENZA VACCINE, QUADR. (F LUZONE; FLULAVAL; FLUARIX; AFLURIA QUADRIVALENT; 6MO+), 0.5 ML (IIV4) 06/17/2020 Family History Medical History Relation Name Comments Cancer - Prostate Father Relation Name Status Comments Father Social History Tobacco Use Types Packs/Day Years Used Date Smoking Tobacco: Never Smokeless Tobacco: Never Alcohol Use Standard Drinks/Week Comments Never 0 (1 standard drink = 0.6 oz pur e alcohol) AUDIT-C Answer Date Recorded Q1: How often do you have a drink containing alc ohol? Never 12/02/2020 Average Number of Drinks Not on file 021 Frequency of Binge Drinking Not on file 10/2020 PHQ-2 Answer Date Recorded PHQ2 TOTAL SCORE 3 02/21/2021 Sex and Gender Information Value Date Recorded Sex Assigned at Not on file Gender Identity Not on file Sexual Orientation Not on file Last Filed Vital Signs Vital Sign Reading Time Taken Comments Blood Pressure 102/64 02/21/2021 1:00 PM CDT Pulse 72 02/21/2021 1:00 PM CDT Temperature 36.8 C (98.2 F) 02/21/2021 1:00 PM CDT Respiratory Rate - - Oxygen Saturation - - Inhaled Oxygen Concentration - - Weight 60.8 kg (134 lb) 02/21/2021 1:00 PM CDT Height 165.1 cm (5' 5 ) 02/21/2021 1:00 PM CDT Body Mass Index 22.3 02/21/2021 1:00 PM CDT Plan of Treatment Health Maintenance Due Date Last Done Comments COLOGUARD (AGES 45-75) - COL ON CA SCREENING 1973 COLON MONITORING 1973 COLONOSCOPY - COLON CA SCREENING 1973 CT COLONOGRAPHY - COLON CA SCREENING 1973 Colorectal Cancer Screening 1973 FIT - COLON CA SCREENING 1973 FLEX SIG - COLON CA SCREENING 1973 MAMMOGRAM 1973 PAP SMEAR 1973 HIV SCREENING 1988 HEPATITIS C SCREENING 05/23/1991 DTAP/TDAP/TD VACCINES (1 - Tdap) 1992 HEPATITIS B VACCINE (1 of 3 - 19+ 3-dose series) 1992 PNEUMOCOCCAL VACCINE 50+ (1 of 1 - PCV) 2023 ZOSTER VACCINE (1 of 2) 2023 COVID-19 VACCINE (1 - 2023-2 5 season) 2024 INFLUENZA VACCINE (#1) 2024 06/17/2020 DEPRESSION SCREENING 10/04/2024 HIB VACCINE Aged Out No longer eligi ble based on patient's age to complete this topic HPV VACCINE Aged Out No longer eligi ble based on patient's age to complete this topic MENINGOCOCCAL (Group B) VACCINE Aged Out No longer eligible based on patient's age to complete this topic MENINGOCOCCAL VACCINE Aged Out No rebecca ana eligible based on patient's age to complete this topic PNEUMOCOCCAL VACCINE Aged Out No long er eligible based on patient's age to complete this topic Care Teams Experimental Assembler Relationship Specialty Start Date End Date Ivone Haynes MD [address] [place] [address] PCP - General 10/28/20
--- OUTSIDE RECORDS SUMMARY | 2024-11-15 10:12 | XMS_ITS | Referral Summary ---
Author Organization [facility] [email or web address] Address [address] [place] [address] Care Team Providers Care Shirt Hemmer Name Role Phone Ivone Haynes MD Primary Care Provider [phone] Source Comments [facility],non-owned Affiliates and Associated Physician Practices is amultiple site organization consisting of ambulatory clinics and hospital sitesin [place], [place], [place] and [place]. This disclosure is being madepursuant to the Care Everywhere program and may not contain all information available regarding this patient. Last updated 18.[facility] [email or web address] Allergies No known active allergies Medications * Be aware that medications may not be up to date on this document. Alwaysverify current medications with the patient. Medication Sig Dispensed Refills Start Date End Date Status topiramate (TOPAMAX) 25 MG tablet Take 25 mg by mouth once daily 11/21/2020 Active ergocalciferol (DRISDOL) 1.25 MG (45387 UT) capsule Take 1 capsule by mouth [...] 12/02/2020 Assessment & Plan (12/02/2020 9:22 PM AUTOMOBILE BODY REPAIRER HELPER): Distribution c/w photoallergic reaction, reviewed etiology Reviewed patch testing, provided patch packet Plan to test to NACDG-80 series, reviewed w/ her unable to do photoallergy testing. [place] skin care advised To r/o nutritional deficiency, plan to check niacin level Unlikely med related as she only takes Vitamin D and rousvastatin. started rousvastatin 2 wks ago and rash was already present, no hx of OCP use Dry eyes 09/15/2019 Hypertriglyceridemia 09/15/2019 Immunizations Name Administration Dates Next Due INFLUENZA VACCINE, QUADR. (F LUZONE; FLULAVAL; FLUARIX; AFLURIA QUADRIVALENT; 6MO+), 0.5 ML (IIV4) 06/17/2020 Social History Tobacco Use Types Packs/Day Years [...] 02/21/2021 1:00 PM CDT Plan of Treatment Not on file Care Teams Shirt Hemmer Relationship Specialty Start Date End Date Ivone Haynes MD [address] [place] [address] PCP - General 10/28/20
--- OUTSIDE RECORDS SUMMARY | 2024-11-15 10:12 | XMS_ITS | Clinical Summary ---
Author Organization [facility] [address] - [address] Address [address] [place] [address] Phone Care Team Providers Care Automobile Inspector Name Role Phone Ivone Haynes MD Primary Care Provider [phone] Allergies No known active allergies Medications VIT/FE FUMARATE/FA (TAYLOR ORAL) Take 1 Tab by mouth daily. Active FERROUS SULFATE DRIED ORAL Take 1 Tab by mouth daily. Active ergocalciferol (VITAMIN D) 50,000 unit Oral capsule Take 1 Cap by mouth every 7 days. Active azithromycin (Zithromax Z-Thomas) 250 mg tablet TAKE 2 TABLETS BY MOUTH ON DAY 1, THEN TAKE 1 TABLET BY MOUTH DAILY FOR 4 DAYS 6 Tablet 08/12/2023 9:40 AM STONEWORK TRACER 08/11/2023 Active Family History Medical History Relation Name Comments Healthy Daughter Healthy Father Healthy Mother Other Sister Kidney disease Relation Name Status Comments Daughter Father Mother Sister Social History Tobacco Use Types Packs/Day Years Used Date Smoking Tobacco: Never Alcohol Use Standard Drinks/Week Comments No 0 (1 standard drink = 0.6 oz pur e alcohol) Comments Yes Sex and Gender Information Value Date Recorded Sex Assigned at Not on file Legal Sex Female 6:07 AM STONEWORK TRACER Gender Identity Not on file Sexual Orientation Not on file Occupation Industry Job Start Date Job End Date Not on file Not on file Not on file Not on file Plan of Treatment Health Maintenance Due Date Last Done Comments DTAP/TDAP/TD VACCINES (1 - Tdap) 1992 HEPATITIS B VACCINES (1 of 3 - 19+ 3-dose series) 1992 CERVICAL CANCER SCREENING 2003 BREAST CANCER SCREENING 2013 COLORECTAL SCREENING 2018 Colorectal Cancer Screening 2018 FIT-DNA Q 3 years 2018 FIT/FOBT Q 1 year 2018 Flex Sig/CT Colonography Q 5 years 2018 ZOSTER VACCINE (1 of 2) 2023 INFLUENZA VACCINE (#1) 2024 RSV VACCINE (60+ or ) (1 - 1-dose 75+ series) 2048 PNEUMOCOCCAL VACCINE 0-64 YEARS Aged Out No longer eligible based on patient's age to complete this topic Insurance [employer] O OPEN ACCESS RX GENERIC COMMERCIAL Commercial Care Teams Automobile Inspector Relationship Specialty Start Date End Date Ivone Haynes MD [address] [address] PCP - General Obstetrics and Gynecology 11/18/11
--- OUTSIDE RECORDS SUMMARY | 2024-11-15 10:12 | XMS_ITS | Referral Summary ---
Author Organization [facility] [address] Address [address] [place] [address] Care Team Providers Care Family Nurse Practitioner Name Role Phone Nader Patel MD Primary Care Provider [phone] Allergies No known active allergies Medications rosuvastatin [...] day 60 tablet 3 2 Active rizatriptan FUEL CELL ASSEMBLER (MAXALT-FUEL CELL ASSEMBLER) 10 mg disintegrating tabletIndications:M igraine Take 1 tablet (10 mg total) by mouth once as needed for migraine for up to 1 dose May repeat in 2 hours if unresolved. Do not exceed 30 mg in 24 hours. 9 tablet 3 2 Active Active Problems Problem Noted Date Diagnosed Date Chronic migraine without aur a without status migrainosus, not intractable 09/12/2022 Social History Tobacco Use Types Packs/Day Years Used Date Smoking Tobacco: Never Tobacco Cessation:Counseling Given: Not Answered Personal Safety Answer Date Recorded Getting School Help Needed Not on file 12/17 Comments Unknown Sex and Gender Information Value Date Recorded Sex Assigned at Not on file Legal Sex Female 4:49 AM DIRECTOR INDEPENDENT Gender Identity Not on file Sexual Orientation Not on file Last Filed Vital Signs Vital Sign Reading Time Taken Comments Blood Pressure 90/58 09/11/2022 9:26 AM DIRECTOR INDEPENDENT Pulse 72 09/11/2022 9:26 AM DIRECTOR INDEPENDENT Temperature - - Respiratory Rate - - Oxygen Saturation 97% 09/11/2022 9:26 AM DIRECTOR INDEPENDENT Inhaled Oxygen Concentration - - Weight 62.1 kg (137 lb) 09/11/2022 9:26 AM DIRECTOR INDEPENDENT Height 165.1 cm (5' 5 ) 09/11/2022 9:26 AM DIRECTOR INDEPENDENT Body Mass Index 22.8 09/11/2022 9:26 AM DIRECTOR INDEPENDENT Plan of Treatment Not on file Insurance [facility] [id number] Care Teams Family Nurse Practitioner Relationship Specialty Start Date End Date Nader Patel MD [address] [place] [address] PCP - General Family Medicine 04/24/22
--- OUTSIDE RECORDS SUMMARY | 2024-11-15 10:12 | XMS_ITS | Patient Health Summary ---
Author Organization [facility] [email or web address] Address [address] [place] [address] Care Team Providers Care Artist'S Model Name Role Phone Ivone Haynes MD Primary Care Provider [phone] Note from [facility],non-owned Affiliates and Associated Physician Practices is amultiple site organization consisting of ambulatory clinics and hospital sitesin [place], [place], [place] and [place]. This disclosure is being madepursuant to the Care Everywhere program and may not contain all information available regarding this patient. Last updated 18.[facility] Allergies No known active allergies Medications * Be aware that medications may not be up to date on this document. Alwaysverify current medications with the patient. * topiramate (TOPAMAX) 25 MG tablet(Started 11/21/2020) Take 25 mg by mouth once daily * ergocalciferol (DRISDOL) 1.25 MG (09556 UT) capsule Take 1 capsule by mouth every 7 days * rosuvastatin (CRESTOR) 10 MG tablet(Started 11/01/2020) Take 10 mg by mouth once daily * LUTEIN PO * tacrolimus (PROTOPIC) 0.1 % ointment(Started 12/02/2020) Apply to face and neck two times daily. 30 days supply. 3 refills by 12/02/2021 * Lancets Misc. 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 (FLUZONE; FLULAVAL; FLUARIX; AFLURIA QUADRIVALENT; 6MO+), 0.5 ML (IIV4)(Given 06/17/2020) Social History Tobacco Use Types Packs/Day Years [...] Mass Index 22.3 02/21/2021 1:00 PM CDT Procedures * XR KNEE BILAT STANDING 1VW(Performed 02/21/2021) Performed for Polyarthralgia * XR HAND RIGHT 3VW OR MORE(Performed 02/21/2021) Performed for Polyarthralgia * XR HAND LEFT 3VW OR MORE(Performed 02/21/2021) Performed for Polyarthralgia * SS-A (SJOGREN'S) 52+60 ANTIBODIES(Performed 02/21/2021) Performed for Polyarthralgia * AKERS/MARINE EQUIPMENT RESEARCH ENGINEER (SHELLI) ANTIBODY IGG(Performed 02/21/2021) Performed for Polyarthralgia * OLLIE BLOOD SCREEN W/REFLEX TITER(Performed 02/21/2021) Performed for Polyarthralgia * SS-B (SJOGREN'S) ANTIBODY(Performed 02/21/2021) Performed for Polyarthralgia * DNA ANTIBODY DS CRITHIDIA TITER(Performed 02/21/2021) Performed for Polyarthralgia * HEPATIC FUNCTION PANEL(Performed 02/21/2021) Performed for Polyarthralgia * ERYTHROCYTE SEDIMENTATION RATE(Performed 02/21/2021) Performed for Polyarthralgia * CREATININE BLOOD(Performed 02/21/2021) Performed for Polyarthralgia * C-REACTIVE PROTEIN(Performed 02/21/2021) Performed for Polyarthralgia * CBC W AUTO DIFFERENTIAL(Performed 02/21/2021) Performed for Polyarthralgia * HLA TYPING B27(Performed 02/21/2021) Performed for Polyarthralgia * RHEUMATOID FACTOR BLOOD QUANTITATIVE(Performed 02/21/2021) Performed for Polyarthralgia * CYCLIC CITRUL PEPTIDE ANTIBODY IGG/IGA (CCP)(Performed 02/21/2021) Performed for Polyarthralgia * CK BLOOD(Performed 02/21/2021) Performed for Polyarthralgia * ALDOLASE(Performed 02/21/2021) Performed for Polyarthralgia * NIACIN (VITAMIN B3)(Performed 12/02/2020) Performed for Photosensitivity dermatitis Results * XR KNEE BILAT STANDING 1VW (02/21/2021 2:06 PM CDT) Anatomical Region Laterality Modality Lower Extremity Radiographic Usha ging 02/21/2021 2:00 PM CDT Impressions 02/21/2021 2:37 PM CDT IMPRESSION: 1. Bilateral hands: No evidence of arthritis. 2. Bilateral knees: Normal joint spaces. Right proximal tibial osteochondroma. Dictated by Everton Gamble MD (president college or university). I, Dr. KRISTIAN ENRIQUEZ MD have personally reviewed and interpreted this examination/study. This report was electronically signed by KRISTIAN ENRIQUEZ MD on 02/21/2021 2:37 PM . Narrative 02/21/2021 2:37 PM CDT EXAMINATION: 1. XR HAND RIGHT 3VW 2. XR KNEE BILAT STANDING 1VW, 3. XR HAND LEFT 3VW HISTORY: M25.50: Polyarthralgia FINDINGS: No prior study is available for comparison at the time of this dictation. Right hand: The osseous structures are intact and well aligned without acute fracture or dislocation. The joint spaces are preserved. Bone density and texture are normal. No soft tissue swelling is present. Left hand: The osseous structures are intact and well aligned without acute fracture or dislocation. The joint spaces are preserved. Bone density and texture are normal. No soft tissue swelling is present. Bilateral knees standing one view: The medial and lateral compartment joint spaces are normal and symmetric bilaterally. There is a 1.3 x 1.0 cm exophytic bone lesion arising from the right proximal tibial medial metaphysis consistent with an osteochondroma. Procedure Note Kristian Enriquez MD - 02/21/2021 EXAMINATION: 1. XR HAND RIGHT 3VW 2. XR KNEE BILAT STANDING 1VW, 3. XR HAND LEFT 3VW HISTORY: M25.50: Polyarthralgia FINDINGS: No prior study is available for comparison at the time of this dictation. Right hand: The osseous structures are intact and well aligned without acutefracture or dislocation. The joint spaces are preserved. Bone density and texture are normal. No soft tissue swelling is present. Left hand: The osseous structures are intact and well aligned without acutefracture or dislocation. The joint spaces are preserved. Bone density and texture are normal. No soft tissue swelling is present. Bilateral knees standing one view: The medial and lateral compartment joint spaces are normal and symmetric bilaterally. There is a 1.3 x 1.0 cm exophytic bone lesion arising from the right proximal tibial medial metaphysis consistent with an osteochondroma. IMPRESSION: 1. Bilateral hands: No evidence of arthritis. 2. Bilateral knees: Normal joint spaces. Right proximal tibial osteochondroma. Dictated by vEerton Gamble MD (president college or university). I, Dr. KRISTIAN ENRIQUEZ MD have personally reviewed and interpreted this examination/study. This report was electronically signed by KRISTIAN ENRIQUEZ MD on02/21/2021 2:37 PM . Medhat Ferrari MD DIAGNOSTIC IMAGING O RDERABLES * XR HAND RIGHT 3VW OR MORE (02/21/2021 2:06 PM CDT) Anatomical Region Laterality Modality Wrist / Hand Radiographic Usha ging 02/21/2021 2:00 PM CDT Impressions 02/21/2021 2:37 PM CDT IMPRESSION: 1. Bilateral hands: No evidence of arthritis. 2. Bilateral knees: Normal joint spaces. Right proximal tibial osteochondroma. Dictated by Everton Gamble MD (president college or university). I, Dr. KRISTIAN ENRIQUEZ MD have personally reviewed and interpreted this examination/study. This report was electronically signed by KRISTIAN ENRIQUEZ MD on 02/21/2021 2:37 PM . Narrative 02/21/2021 2:37 PM CDT EXAMINATION: 1. XR HAND RIGHT 3VW 2. XR KNEE BILAT STANDING 1VW, 3. XR HAND LEFT 3VW HISTORY: M25.50: Polyarthralgia FINDINGS: No prior study is available for comparison at the time of this dictation. Right hand: The osseous structures are intact and well aligned without acute fracture or dislocation. The joint spaces are preserved. Bone density and texture are normal. No soft tissue swelling is present. Left hand: The osseous structures are intact and well aligned without acute fracture or dislocation. The joint spaces are preserved. Bone density and texture are normal. No soft tissue swelling is present. Bilateral knees standing one view: The medial and lateral compartment joint spaces are normal and symmetric bilaterally. There is a 1.3 x 1.0 cm exophytic bone lesion arising from the right proximal tibial medial metaphysis consistent with an osteochondroma. Procedure Note Kristian Enriquez MD - 02/21/2021 EXAMINATION: 1. XR HAND RIGHT 3VW 2. XR KNEE BILAT STANDING 1VW, 3. XR HAND LEFT 3VW HISTORY: M25.50: Polyarthralgia FINDINGS: No prior study is available for comparison at the time of this dictation. Right hand: The osseous structures are intact and well aligned without acutefracture or dislocation. The joint spaces are preserved. Bone density and texture are normal. No soft tissue swelling is present. Left hand: The osseous structures are intact and well aligned without acutefracture or dislocation. The joint spaces are preserved. Bone density and texture are normal. No soft tissue swelling is present. Bilateral knees standing one view: The medial and lateral compartment joint spaces are normal and symmetric bilaterally. There is a 1.3 x 1.0 cm exophytic bone lesion arising from the right proximal tibial medial metaphysis consistent with an osteochondroma. IMPRESSION: 1. Bilateral hands: No evidence of arthritis. 2. Bilateral knees: Normal joint spaces. Right proximal tibial osteochondroma. Dictated by Everton Gamble MD (president college or university). Dr. KRISTIAN Rust MD have personally reviewed and interpreted this examination/study. This report was electronically signed by KRISTIAN ENRIQUEZ MD on02/21/2021 2:37 PM . Medhat Ferrari MD DIAGNOSTIC IMAGING O RDERABLES * XR HAND LEFT 3VW OR MORE (02/21/2021 2:06 PM CDT) Anatomical Region Laterality Modality Wrist / Hand Radiographic Usha ging 02/21/2021 2:00 PM CDT Impressions 02/21/2021 2:37 PM CDT IMPRESSION: 1. Bilateral hands: No evidence of arthritis. 2. Bilateral knees: Normal joint spaces. Right proximal tibial osteochondroma. Dictated by Everton Gamble MD (president college or [employer]). Dr. KRISTIAN Rust MD have personally reviewed and interpreted this examination/study. This report was electronically signed by KRISTIAN ENRIQUEZ MD on 02/21/2021 2:37 PM . Narrative 02/21/2021 2:37 PM CDT EXAMINATION: 1. XR HAND RIGHT 3VW 2. XR KNEE BILAT STANDING 1VW, 3. XR HAND LEFT 3VW HISTORY: M25.50: Polyarthralgia FINDINGS: No prior study is available for comparison at the time of this dictation. Right hand: The osseous structures are intact and well aligned without acute fracture or dislocation. The joint spaces are preserved. Bone density and texture are normal. No soft tissue swelling is present. Left hand: The osseous structures are intact and well aligned without acute fracture or dislocation. The joint spaces are preserved. Bone density and texture are normal. No soft tissue swelling is present. Bilateral knees standing one view: The medial and lateral compartment joint spaces are normal and symmetric bilaterally. There is a 1.3 x 1.0 cm exophytic bone lesion arising from the right proximal tibial medial metaphysis consistent with an osteochondroma. Procedure Note Kristian Enriquez MD - 02/21/2021 EXAMINATION: 1. XR HAND RIGHT 3VW 2. XR KNEE BILAT STANDING 1VW, 3. XR HAND LEFT 3VW HISTORY: M25.50: Polyarthralgia FINDINGS: No prior study is available for comparison at the time of this dictation. Right hand: The osseous structures are intact and well aligned without acutefracture or dislocation. The joint spaces are preserved. Bone density and texture are normal. No soft tissue swelling is present. Left hand: The osseous structures are intact and well aligned without acutefracture or dislocation. The joint spaces are preserved. Bone density and texture are normal. No soft tissue swelling is present. Bilateral knees standing one view: The medial and lateral compartment joint spaces are normal and symmetric bilaterally. There is a 1.3 x 1.0 cm exophytic bone lesion arising from the right proximal tibial medial metaphysis consistent with an osteochondroma. IMPRESSION: 1. Bilateral hands: No evidence of arthritis. 2. Bilateral knees: Normal joint spaces. Right proximal tibial osteochondroma. Dictated by Everton Gamble MD (president college or [employer]). I, Dr. KRISTIAN ENRIQUEZ MD have personally reviewed and interpreted this examination/study. This report was electronically signed by KRISTIAN ENRIQUEZ MD on02/21/2021 2:37 PM . Medhat Ferrari MD DIAGNOSTIC IMAGING O RDERABLES * SS-A (SJOGREN'S) 52+60 ANTIBODIES (02/21/2021 1:45 PM CDT) SS-A 52 Antibody 2 0 - 40 AU/mL 03/03/2021 11:05 AM CDT [facility] ([facility]) Comment: INTERPRETIVE INFORMATION: SSA-52 (Ro52) (SHELLI) Antibody, IgG 29 AU/mL or Less ............. Negative 30 - 40 AU/mL ................ Equivocal 41 AU/mL or Greater .......... Positive SSA-52 (Ro52) and/or SSA-60 (Ro60) antibodies are associated with a diagnosis of Sjogren syndrome, systemic lupus erythematosus (SLE), and systemic sclerosis. SSA-52 antibody overlaps significantly with the major SSc-related antibodies. SSA-52 (Ro52) antibody occurs frequently in patients with inflammatory myopathies, often in the presence of interstitial lung disease. SS-A 60 Antibody 0 0 - 40 AU/mL 03/03/2021 11:05 AM CDT [facility] ([facility]) Comment: REFERENCE INTERVAL: SSA-60 (Ro60) (SHELLI) Antibody, IgG 29 AU/mL or Less ............. Negative 30 - 40 AU/mL ................ Equivocal 41 AU/mL or Greater .......... Positive Performed By: [facility] [address] [place] [address] Basket Bottom Machine Operator: Hayley Douglas MD Blood BLOOD SPECIMEN / Unknown Lab Venipuncture / Unknown 02/21/2021 1:45 PM CDT 02/21/2021 3:58 PM CDT Medhat Ferrari MD LAB - CHEMISTRY VALERIO DURHAM [facility] Organization Address City/State/ZIP Co de Phone Number [facility] [employer] [facility]) [address] [place] [address], [facility] * AKERS/MARINE EQUIPMENT RESEARCH ENGINEER (SHELLI) ANTIBODY IGG (02/21/2021 1:45 PM CDT) Pathologist [facility] Akers/MARINE EQUIPMENT RESEARCH ENGINEER (SHELLI) Antibody IgG See Note 03/06/2021 3:58 PM CDT [facility] ([facility]) Comment: EFFECTIVE 11/07/2020 TEST/REFERENCE INTERVAL CHANGE Akers/MARINE EQUIPMENT RESEARCH ENGINEER (SHELLI) Antibody, Ig Units Due to reagent kit performance, an alternate kit has been validated and implemented by [facility]. This semi-quantitative enzyme-linked immunosorbent assay (DARLING) detects IgG antibody to the Sm/MARINE EQUIPMENT RESEARCH ENGINEER complex. The following Reference Interval applies to this result: 19 Units or less Negative 20 to 39 Units Weak Positive 40 to 80 Units Moderate Positive 81 Units or greater Strong Positive Akers/MARINE EQUIPMENT RESEARCH ENGINEER antibodies are frequently seen in patients with mixed connective tissue disease (MCTD) and are also associated with other systemic autoimmune rheumatic diseases (SARDs) such as systemic lupus erythematosus (SLE), systemic sclerosis, and myositis. Antibodies targeting the Akers/MARINE EQUIPMENT RESEARCH ENGINEER antigenic complex also recognize Akers antigens, therefore, the Akers antibody response must be considered when interpreting these results. Performed By: [facility] [address] [place] [address] Basket Bottom Machine Operator: Hayley Douglas MD Blood BLOOD SPECIMEN / Unknown Lab Venipuncture / Unknown 02/21/2021 1:45 PM CDT 02/21/2021 3:59 PM CDT Medhat Ferrari MD LAB - CHEMISTRY ORDE HERMINIO Performing Organization Address [facility] Co de Phone Number [facility] ([facility]) [address] [place] [address] * CYCLIC CITRUL PEPTIDE ANTIBODY IGG/IGA (CCP) (02/21/2021 1:45 PM CDT) [facility] CCP Antibodies IgG/IgA 3 0 - 19 units 02/25/2021 12:06 AM CDT [facility] ([facility]) Comment: Negative <20 Weak positive 20 - 39 Moderate positive 40 - 59 Strong positive >59 Blood BLOOD SPECIMEN / Unknown Lab Venipuncture / Unknown 02/21/2021 1:45 PM CDT 02/21/2021 3:59 PM CDT Narrative [facility] ([facility]) - 02/25/2021 12:06 AM CDT Performed at: [address] [place] [id number] Venue Attendant: Shea Edmond MD, Phone: [phone] Medhat Ferrari MD LAB - SEROLOGY ORDER [facility] ([facility]) [address] [place] [address] * DNA ANTIBODY DS CRITHIDIA TITER (02/21/2021 1:45 PM CDT) Pathologist [facility] dsDNA Antibody IgG <1:10 <1:10 2020 11:40 PM CDT [facility] ([facility]) Comment: INTERPRETIVE INFORMATION: Double-Stranded DNA (dsDNA) Antibody, IgG by IFA (using Crithidia luciliae) Positivity for anti-double stranded DNA (anti-dsDNA) IgG antibody is a diagnostic criterion of systemic lupus erythematosus (SLE). The presence of the anti-dsDNA IgG antibody is identified by IFA titer (Crithidia luciliae indirect fluorescent test [COREY]). COREY is highly specific for SLE with a sensitivity of 50-60 percent. Some patients with early or inactive SLE may be positive for anti-dsDNA IgG by DARLING but negative by COREY. If the COREY result is negative but the patient has a positive DARLING and clinical suspicion remains, consider antinuclear antibody (OLLIE) testing by IFA. Additional information and recommendations for testing may be found at [email or web address] [email or web address]. Performed By: [facility] [address] [place] [address] Basket Bottom Machine Operator: Hayley Douglas MD Blood BLOOD SPECIMEN / Unknown Lab Venipuncture / Unknown 02/21/2021 1:45 PM CDT 02/21/2021 3:59 PM CDT Medhat Ferrari MD LAB - SEROLOGY ORDER JULIANA [facility] [employer] [facility]) [address] [place] [address] * RHEUMATOID FACTOR BLOOD QUANTITATIVE (02/21/2021 1:45 PM CDT) [facility] Rheumatoid Factor <15 <30 IU/mL 02/21/2021 4:22 PM CDT [facility] Rheumatoid Factor Screen Negative Negative 02/21/2021 4:22 PM CDT [facility] Blood BLOOD SPECIMEN / Unknown Lab Venipuncture / Unknown 02/21/2021 1:45 PM CDT 02/21/2021 3:59 PM CDT Medhat Ferrari MD LAB - CHEMISTRY VALERIO DURHAM [facility] [address] [place] [id number], [facility] [phone] * C-REACTIVE PROTEIN (02/21/2021 1:45 PM CDT) Pathologist [facility] C-Reactive Protein <0.5 <=0.5 mg/dL 02/21/2021 4:22 PM CDT [facility] Blood BLOOD SPECIMEN / Unknown Lab Venipuncture / Unknown 02/21/2021 1:45 PM CDT 02/21/2021 3:59 PM CDT Medhat Ferrari MD LAB - CHEMISTRY VALERIO DURHAM Performing Organization Address [facility] Co de Phone Number [address] [address], [place] [phone] * OLLIE BLOOD SCREEN W/REFLEX TITER (02/21/2021 1:45 PM CDT) Pathologist [facility] OLLIE IgG None Detected None Detected 02/23/2021 7:56 AM CDT [facility] ([facility]) Comment: Specimen is lipemic. Results may be adversely affected. If suspicion of connective tissue disease is strong and OLLIE EIA is negative, consider testing for OLLIE by IFA ([id number]). INTERPRETIVE INFORMATION: Anti-Nuclear Antibodies (OLLIE), IgG by DARLING Antinuclear Antibodies (OLLIE), IgG by DARLING: OLLIE specimens are screened using enzyme-linked immunosorbent assay (DARLING) methodology. All DARLING results reported as Detected are further tested by indirect fluorescent assay (IFA) using HEp-2 substrate with an IgG-specific conjugate. The OLLIE DARLING screen is designed to detect antibodies against dsDNA, histones, SS-A (Ro), SS-B (La), Akers, Akers/MARINE EQUIPMENT RESEARCH ENGINEER, Scl-70, Rima-1, centromeric proteins, other antigens extracted from the HEp-2 cell nucleus. OLLIE DARLING assays have been reported to have lower sensitivities than OLLIE IFA for systemic autoimmune rheumatic diseases (SARD). Negative results do not necessarily rule out SARD. Performed By: [facility] [address] [place] [address] Basket Bottom Machine Operator: Hayley Douglas MD Blood BLOOD SPECIMEN / Unknown Lab Venipuncture / Unknown 02/21/2021 1:45 PM CDT 02/21/2021 3:59 PM CDT Medhat Ferrari MD LAB - CHEMISTRY VALERIO DURHAM Performing Organization Address [facility] de Phone Number [facility] ([facility]) [address] [place] [address] * HLA TYPING B27 (02/21/2021 1:45 PM CDT) Pathologist [facility] HLA-B27 Negative Negative 02/23/2021 3:03 PM CDT [facility] [employer] ([facility]) Comment: INTERPRETIVE INFORMATION: HLA-B27 HLA-B27 is a serologically defined allele of the human HLA-B locus. The presence of the HLA-B27 antigen is strongly associated with ankylosing spondylitis and related disorders. This test was developed and its performance characteristics determined by [facility]. It has not been cleared or approved by the [place] Food and Drug Administration. This test was performed in a CLIA certified laboratory and is intended for clinical purposes. Performed by [facility], [address] [place] [address] www.[email or web address], Hayley Douglas MD, Lab. Director Blood BLOOD SPECIMEN / Unknown Lab Venipuncture / Unknown 02/21/2021 1:45 PM CDT 02/21/2021 2:57 PM CDT Medhat Ferrari MD LAB - CHEMISTRY VALERIO DURHAM Performing Organization Address [facility] de Phone Number [facility]) [address] [place] [address] * SS-B (SJOGREN'S) ANTIBODY (02/21/2021 1:45 PM CDT) Pathologist [facility] SS-B Antibody 0 0 - 40 AU/mL 03/03/2021 11:05 AM CDT [facility] ([facility]) Comment: INTERPRETIVE INFORMATION: SSB (La) (SHELLI) Ab, IgG 29 AU/mL or Less ............. Negative 30 - 40 AU/mL ................ Equivocal 41 AU/mL or Greater .......... Positive SSB (La) antibody is seen in 50-60% of Sjogren syndrome cases and is specific if it is the only SHELLI antibody present. 15-25% of patients with systemic lupus erythematosus (SLE) and 5-10% of patients with progressive systemic sclerosis (PSS) also have this antibody. Performed By: [facility] [address] [place] [address] Basket Bottom Machine Operator: Hayley Douglas MD Blood BLOOD SPECIMEN / Unknown Lab Venipuncture / Unknown 02/21/2021 1:45 PM CDT 02/21/2021 3:59 PM CDT Medhat Ferrari MD LAB - CHEMISTRY ORDEmilia DURHAM Performing Organization Address [facility] Co de Phone Number [facility] [employer] [facility]) [address] [place] [address] * ALDOLASE (02/21/2021 1:45 PM CDT) [facility] Aldolase 3.3 1.5 - 8.1 U/L 02/22/2021 11:32 PM CDT [facility] [employer] ([facility]) Comment: REFERENCE INTERVAL: Aldolase Access complete set of age- and/or gender-specific reference intervals for this test in the [facility] Laboratory Test Directory ([employer]). Performed By: [facility] [address] [place] [address] Basket Bottom Machine Operator: Hayley Douglas MD Blood BLOOD SPECIMEN / Unknown Lab Venipuncture / Unknown 02/21/2021 1:45 PM CDT 02/21/2021 3:59 PM CDT Medhat Ferrari MD LAB - CHEMISTRY VALERIO DURHAM Performing Organization Address City/[facility]/ZIP Co de Phone Number [facility] ([facility]) [address] [place] [id number], [facility] * ERYTHROCYTE SEDIMENTATION RATE (02/21/2021 1:45 PM CDT) Erythrocyte Sedimentation Rate Westergren 8 0 - 20 MM/HR 02/21/2021 3:45 PM T [facility] Blood BLOOD SPECIMEN / Unknown Lab Venipuncture / Unknown 02/21/2021 1:45 PM CDT 02/21/2021 2:31 PM CDT Medhat Ferrari MD LAB - HEMATOLOGY ORD ERABLES [facility] [facility] [address] [place] [address], [facility] [phone] * (ABNORMAL) CBC WITH DIFFERENTIAL (02/21/2021 1:45 PM CDT) WBC 4.6 3.5 - 10.5 10 3/uL 02/21/2021 3:05 PM [facility] RBC 4.10 3.80 - 5.20 10 6/uL 02/21/2021 3:05 PM [facility] Hemoglobin 11.9(L) 12.0 - 15.6 g/dL 02/21/2021 3:05 PM [facility] Hematocrit 37.4 35.0 - 45.0 % 02/21/2021 3:05 PM [facility] MCV 91.2 80.7 - 98.3 fL 02/21/2021 3:05 PM [facility] MCH 29.0 26.7 - 34.0 pg 02/21/2021 3:05 PM [facility] MCHC 31.8 30.8 - 35.9 g/dL 02/21/2021 3:05 PM [facility] Platelet Count 175 150 - 400 10 3/uL 02/21/2021 3:05 PM [facility] RDW-SD 39.5 36.0 - 50.0 fL 02/21/2021 3:05 PM [facility] RDW-CV 11.8 11.2 - 14.8 % 02/21/2021 3:05 PM [facility] MPV 10.8 9.4 - 12.9 fL 02/21/2021 3:05 PM [facility] nRBC Absolute 0.00 0 10 3/uL 02/21/2021 3:05 PM [facility] nRBC Auto 0.0 0 /100 WBC 02/21/2021 3:05 PM [facility] Neutrophils % 56.1 35.0 - 70.0 % 02/21/2021 3:05 PM [facility] Lymphocytes % 34.3 20.0 - 43.0 % 02/21/2021 3:05 PM [facility] Monocytes % 5.7 5.0 - 13.0 % 02/21/2021 3:05 PM [facility] Eosinophils % 2.8 0.0 - 6.0 % 02/21/2021 3:05 PM [facility] Basophil % 0.9 0.0 - 2.0 % 02/21/2021 3:05 PM [facility] Neutrophils Absolute 2.6 1.6 - 7.0 10 3/uL 02/21/2021 3:05 PM [facility] Lymphocyte Absolute 1.6 1.1 - 3.9 10 3/uL 02/21/2021 3:05 PM [facility] Monocytes Absolute 0.26 0.26 - 1.07 10 3/uL 02/21/2021 3:05 PM [facility] Eosinophils Absolute 0.13 0.00 - 0.47 10 3/uL 02/21/2021 3:05 PM [facility] Basophils Absolute 0.04 0.00 - 0.08 10 3/uL 02/21/2021 3:05 PM [facility] Immature Granulocytes % 0.2 0.0 - 1.0 % 02/21/2021 3:05 PM [facility] Immature Granulocytes Absolute 0.01 02/21/2021 3:05 PM [facility] Blood BLOOD SPECIMEN / Unknown Lab Venipuncture / Unknown 02/21/2021 1:45 PM CDT 02/21/2021 2:31 PM CDT Medhat Ferrari MD LAB - HEMATOLOGY ORD ERABLES [facility] [address] [place] [address], [facility] [phone] * HEPATIC FUNCTION PANEL (02/21/2021 1:45 PM CDT) Pathologist [facility] Protein Total 7.0 6.0 - 8.3 g/dL 021 3:00 PM CDT [facility] Albumin 4.1 3.4 - 5.0 g/dL 02/21/2021 3:00 PM CDT [facility] Bilirubin Total 0.3 0.2 - 1.2 mg/dL 02/02 3:00 PM CDT [facility] Bilirubin Conjugated 0.1 0.1 - 0.5 mg/dL 02/21/2021 3:00 PM T [facility] Bilirubin Unconjugated 0.2 Unconjugated Bilirubin is a calculated value: Reference ranges have not been established. mg/dL 02/21/2021 3:00 PM CDT [facility] Alkaline Phosphatase 62 40 - 150 U/L 02/21/2021 3:00 PM CDT [facility] ALT 14 5 - 55 U/L 02/21/2021 3:00 PM T [facility] AST 15 5 - 34 U/L 02/21/2021 3:00 PM T [facility] Albumin/Globulin Ratio 1.4 1.1 - 2.3 02/21/2021 3:00 PM T [facility] Blood BLOOD SPECIMEN / Unknown Lab Venipuncture / Unknown 02/21/2021 1:45 PM CDT 02/21/2021 2:31 PM CDT Medhat Ferrari MD LAB - CHEMISTRY ORDEmilia DURHAM [facility] [address] [place] [address], [place] [phone] * (ABNORMAL) CREATININE BLOOD (02/21/2021 1:45 PM CDT) Pathologist [facility] Creatinine 0.55(L) 0.56 - 0.96 mg/dL 02/21/2021 3:00 PM CDT [facility] eGFR by CKD-EPI >90 >=90 mL/min/1.7 3 m2 02/21/2021 3:00 PM CDT [facility] Blood BLOOD SPECIMEN / Unknown Lab Venipuncture / Unknown 02/21/2021 1:45 PM CDT 02/21/2021 2:31 PM CDT Medhat Ferrari MD LAB - CHEMISTRY [facility] [address] [address], [facility] [phone] * CK BLOOD (02/21/2021 1:45 PM CDT) [facility] CK Total 84 30 - 200 U/L 02/21/2021 3:00 PM CDT [facility] Blood BLOOD SPECIMEN / Unknown Lab Venipuncture / Unknown 02/21/2021 1:45 PM CDT 02/21/2021 2:31 PM CDT Medhat Ferrari MD LAB - CHEMISTRY [facility] [address] [address], [facility] [phone] * NIACIN (VITAMIN B3) (12/02/2020 2:06 PM BOARD OPERATOR) [facility] Niacin 1.74 0.50 - 8.45 ug/mL 12/12/2020 1:34 PM BOARD OPERATOR [facility] Comment: Adult Reference Range > or = 10 years: Normal 0.50 - 8.45 ug/mL Low < 0.50 ug/mL High > 8.45 ug/mL Pediatric Reference Range <10 Years: Normal 0.50 - 8.91 ug/mL Low < 0.50 ug/mL High > 8.91 ug/mL The performance characteristics of the listed assay was validated by [facility]. The [place] FDA has not approved or cleared this test. The results of this assay can be used for clinical diagnosis without FDA approval. [facility] is a CLIA certified, CAP accredited laboratory for performing high complexity assays such as this one. Testing Performed at: [facility] [place] [address] Blood BLOOD SPECIMEN / Unknown Lab Venipuncture / Unknown 12/02/2020 2:06 PM BOARD OPERATOR 12/02/2020 2:34 PM BOARD OPERATOR Sherrell Sanchez MD LAB - CHEMISTRY VALERIO DURHAM [facility] ([facility]) [address] [place] [id number], [facility] Care Teams Artist'S Model Relationship Specialty Start Date End Date Ivone Haynes MD [address] [facility] [address] [place] [address] PCP - General 10/28/20
--- NOTE | 2024-11-15 11:00 | NEURO_ITS ---
Impression: # Complains of numbness of hands. Non-diabetic. ? # Normal Nerve Conduction Study. ? # No Carpal Tunnel Syndrome or ulnar neuropathy. # Normal needle/EMG exam. ? # Clinical correlation recommended. Nerve Conduction Studies Anti Sensory Summary Table ?Stim Site NR Peak (ms) P-T Amp (?V) Site1 Site2 Delta-P (ms) Dist (cm) David (m/s) Left Median Anti Sensory (2-3nd Digit) Wrist ? 2.6 84.1 Wrist 2-3nd Digit 2.6 14.0 54 Wrist ? 2.6 83.6 Wrist 2-3nd Digit 2.6 14.0 54 Right Median Anti Sensory (2-3nd Digit) Wrist ? 2.7 36.0 Wrist 2-3nd Digit 2.7 14.0 52 Wrist ? 2.6 74.2 Wrist 2-3nd Digit 2.7 14.0 52 Left Radial Anti Sensory (Base 1st Digit) Wrist ? 1.6 53.7 Wrist Base 1st Digit 1.6 0.0 Right Radial Anti Sensory (Base 1st Digit) Wrist ? 1.8 48.5 Wrist Base 1st Digit 1.8 0.0 Left Ulnar Anti Sensory (5th Digit) Wrist ? 2.3 90.7 Wrist 5th Digit 2.3 14.0 61 Right Ulnar Anti Sensory (5th Digit) Wrist ? 2.2 58.6 Wrist 5th Digit 2.2 14.0 64 Motor Summary Table ?Stim Site NR Onset (ms) O-P Amp (mV) Site1 Site2 Delta-0 (ms) Dist (cm) David (m/s) Left Median Motor (Abd Poll Brev) Wrist ? 2.5 7.1 Elbow Wrist 4.4 27.0 61 Elbow ? 6.9 5.7 Right Median Motor (Abd Poll Brev) Wrist ? 2.4 8.0 Elbow Wrist 4.0 26.0 65 Elbow ? 6.4 7.0 Left Ulnar Motor (Abd Dig Minimi) Wrist ? 2.4 5.5 A Elbow Wrist 4.7 28.0 60 A Elbow ? 7.1 4.2 Right Ulnar Motor (Abd Dig Minimi) Wrist ? 2.3 7.8 A Elbow Wrist 4.5 28.0 62 A Elbow ? 6.8 6.4 F Wave Studies ?NR F-Lat (ms) L-R F-Lat (ms) Left Median (Mrkrs) (Abd Poll Brev) ? 23.40 0.58 Right Median (Mrkrs) (Abd Poll Brev) ? 22.81 0.58 Left Ulnar (Mrkrs) (Abd Dig Min) ? 23.99 0.80 Right Ulnar (Mrkrs) (Abd Dig Min) ? 24.79 0.80 EMG ?Side Muscle Nerve Root Ins Act Fibs Amp Dur Recrt Comment Right 1stDorInt Ulnar C8-T1 Nml Nml Nml Nml Nml Right Ext Indicis Radial (Post Int) C7-8 Nml Nml Nml Nml Nml Right Ext Digitorum Radial (Post Int) C7-8 Nml Nml Nml Nml Nml Right BrachioRad Radial C5-6 Nml Nml Nml Nml Nml Right PronatorTeres Median C6-7 Nml Nml Nml Nml Nml Right Abd Poll Brev Median C8-T1 Nml Nml Nml Nml Nml Right ABD Dig Min Ulnar C8-T1 Nml Nml Nml Nml Nml Left 1stDorInt Ulnar C8-T1 Nml Nml Nml Nml Nml Left Ext Indicis Radial (Post Int) C7-8 Nml Nml Nml Nml Nml Left Ext Digitorum Radial (Post Int) C7-8 Nml Nml Nml Nml Nml Left BrachioRad Radial C5-6 Nml Nml Nml Nml Nml Left PronatorTeres Median C6-7 Nml Nml Nml Nml Nml Left Abd Poll Brev Median C8-T1 Nml Nml Nml Nml Nml Left ABD Dig Min Ulnar C8-T1 Nml Nml Nml Nml Nml MTDD
== END 2024-11-15 09:31 | disposition home or self-care (01) ==
LOC: ANHNEURO 09:31
PROVIDERS: PCP Emergency Medicine; Visit Provider Emergency Medicine
DX: G58.8 Other specified mononeuropathies (principal)
CPT/HCPCS: 95886; 95911

== ENCOUNTER 2025-02-16 11:20 | Outpatient (CLI) | payer OTHER, BC, SELFPAY ==
--- NOTE | ~2025-02-16 | MM_ITS ---
EXAMINATION: MM screening shane BI w thai HISTORY: Screening TECHNIQUE: Craniocaudal and mediolateral oblique 3-D tomosynthesis images were obtained and synthetic 2-D images were generated. CAD analysis was submitted and interpreted. COMPARISON: Comparison to multiple prior studies sequentially, with oldest reviewed study dated 03/2017. BREAST PARENCHYMAL COMPOSITION: Dense: The breasts are heterogeneously dense, which may obscure small masses FINDINGS: There is no evidence of suspicious mass, calcification, or architectural distortion to sugg est malignancy in either breast. There has been no suspicious interval change. IMPRESSION: 1. No mammographic evidence of malignancy. 2. Recommend routine screening mammography in one year. BI-RADS Category 1: Negative Reviewed, dictated and finalized at location A.
== END 2025-02-16 11:21 | disposition home or self-care (01) ==
LOC: MICIMG 11:21
PROVIDERS: PCP Obstetrics & Gynecology Gynecology; Visit Provider Obstetrics & Gynecology Gynecology
DX: Z12.31 Encounter for screening mammogram for malignant neoplasm of breast (principal)
CPT/HCPCS: 77063; 77067

== ENCOUNTER 2025-08-13 08:55 | Emergency (ER) | payer OTHER, BC, SELFPAY ==
[2025-08-13 09:12] VITALS: BP 110/77; PULSE 85; RESP 16; TEMP 36.6; O2SAT 96
--- NOTE | 2025-08-13 09:27 | ED_ITS ---
HPI - URI/Sore Throat General Chief Complaint: Upper Respiratory Infection Stated Complaint: Headache/Sore Throat Time Seen by Provider: 08/13/25 09:29 Source: patient, RN notes reviewed and old records reviewed Mode of arrival: ambulatory Limitations: no limitations History of Present Illness HPI Narrative: 50 year old female who presents to [facility] with complaints of nasal congestion, headache, and sore throat starting on this past Wednesday. Patient denies any ear pain, acute cough or any shortness of breath. Patient denies any fevers, chills or sweats. She reports that her son has had a cold. Patient has not taken any [id number]-duv-[id number] medication for her symptoms MD elicited complaint: sore throat, rhinorrhea, nasal congestion, sinus pain and other ( headache) Onset (ago): day(s) (3) Pain scale (0-10): 5 Description of mucous: clear Able to tolerate fluids by mouth: Yes Treatments prior to arrival: none Related Data Home Medications ?Medication ?Instructions ?Recorded ?Confirmed ?Last Taken ?Type rosuvastatin 10 mg tablet 10 mg PO DAILY 08/07/2208/0412/30/22 History Allergies Allergy/AdvReac Type Severity Reaction Status Date / Time No Known Allergies Allergy Verified 08/13/25 09:10 Review of Systems Review of Systems: CONSTITUTIONAL: Denies malaise, chills, sweats, or fever. EYES: Denies visual changes, redness, or discharge. ENT: Reports rhinorrhea, congestion, sinus pain, no otalgia and positive sore throat. CARDIOVASCULAR: Denies chest pain, palpitations, or edema. RESPIRATORY: Reports no cough.? Denies dyspnea. GASTROINTESTINAL: Denies abdominal pain, nausea, vomiting, diarrhea SKIN: Denies rash or itching. MUSCULOSKELETAL: Denies myalgia. NEUROLOGIC: Reports headache. All systems reviewed & are unremarkable except as noted in HPI and below PMFSH Past Medical History Medical History Migraine History of hyperlipidemia Family History Family History Other Cancer Heart disease Social History Social History Substance use type: does not use Living arrangements: with family Gender identity (if verbalized by the patient): Female Spiritual care concerns: No Comments At time of signature, agree with nursing past medical, surgical, social and family history. There is no relevant family history pertinent to the presenting complaint Exam Narrative: GENERAL: Well-appearing, well-nourished, and in no acute distress. HEAD: Normocephalic EYES: PERRLA, conjunctivae clear ENT: Nares clear, turbinates edematous and erythematous, clear discharge, sinus pressure, headache. Mucous membranes moist. TM pearly martins with dull light reflex bilaterally; no tragal tenderness. Oropharynx erythematous without lesions. Tonsils not enlarged and without exudate, no drooling, no hoarseness, no trismus, uvula midline.post nasal drainage NECK: Supple. No lymphadenopathy CHEST: Clear to auscultation, breath sounds equal. No wheezing, rhonchi, rales, or stridor. No respiratory distress, speaks in full sentences.no cough, SAO2 96% on room air HEART: Regular rate and rhythm. No murmur heard. SKIN: Warm, dry, no rash. NEURO: Alert and oriented x3. PSYCH: Normal mood and affect Course Course Emergency Course: Patient is aware of diagnosis, understands and agrees to treatment plan.? Anticipatory guidance given.? Patient agrees to follow-up as directed and is aware of reasons to seek care at the emergency department. Portions of this record may have been created with voice recognition software Level of Care: Express Care Visit Vital Signs Vital signs: Vital Signs Temperature 36.6 C 08/13/25 09:12 Pulse Rate 85 08/13/25 09:12 Respiratory Rate 16 08/13/25 09:12 Blood Pressure 110/77 08/13/25 09:12 Pulse Oximetry 96 08/13/25 09:12 Temperature 36.6 C 08/13/25 09:12 Pulse Rate 85 08/13/25 09:12 Respiratory Rate 16 08/13/25 09:12 Blood Pressure 110/77 08/13/25 09:12 Pulse Oximetry 96 08/13/25 09:12 Reviewed MDM - URI/Sore Throat MDM Narrative Medical decision making narrative: Differential diagnosis considered: Blunt virus, strep pharyngitis, allergic rhinitis, upper respiratory tract infection, sinusitis, rhinosinusitis, nasopharyngitis. viral pharyngitis, otitis media, otitis externa, pneumonia, bronchitis, viral cough syndrome, viral syndrome, and influenza.? Exam findings show no acute concerns or changes; patient is non-toxic appearing and is in no distress.? Patient is appropriate for outpatient treatment and follow-up. Differential Diagnosis Differential diagnosis: Likely upper respiratory infection, sinusitis, viral infection, influenza, pharyngitis and other (strep pharyngitis, COVID) Medical Records Attestation: I reviewed the patient's medical records. Lab Data Attestation: I reviewed the patient's lab results. Lab results narrative: strep screen negative, culture sent, Influenza A&B negative, COVID antigen neg ative Labs: Lab Results 08/13/25 Range/Units 09:29 POC Influenza A Ag Negative (Negative) POC Influenza B Ag Negative (Negative) POC SARS CoV-2 Ag Negative (Negative) POC Grp A Strep Screen Negative (Negative) reviewed Critical Care Time Critical Care Time Critical Care Time: No Discharge Plan Discharge Clinical Impression: URI (upper respiratory infection) Qualifiers: URI type: unspecified URI Qualified Code(s): J06.9 - Acute upper respiratory infection, unspecified Pharyngitis Qualifiers: Pharyngitis/tonsillitis etiology: unspecified etiology Qualified Code(s): J02.9 - Acute pharyngitis, unspecified Patient Disposition: Home Condition: Stable Instructions: Antibiotic Form, Pharyngitis (ED), Upper Respiratory Infection (ED) Additional Instructions: Increase fluids especially juices and water Tylenol or ibuprofen for any fever pain per package directions Dtda-yqq-dyvpivg cough and cold medicine of your choice for your symptoms Zyrtec Claritin or Telma daily include plain Sudafed 1 dose in a.m. heat to the face 20-30 minutes 4-6 times a day for pain Salt water gargles, throat lozenges or throat sprays as desired nasal spray Flonase use as directed Your strep test today was negative. A throat culture will be sent to the laboratory for further testing. IF the test is positive, you will receive a phone call within 48 hours and an appropriate antibiotic will be initiated at that time. If your symptoms persist, change or worsen significantly before you can contact your personal physician then please, without delay, go to the emergency department for further evaluation. Follow-up with PCP in 7-10 days or sooner if needed Patient Language: Hebrew Prescriptions: New fluticasone propionate [Flonase Allergy Relief] 50 mcg/actuation spray,suspension 1 spray intranasal DAILY Qty: 16 0RF Rx Instructions: administer into each nostril daily as instructed No Action rosuvastatin 10 mg tablet 10 mg PO DAILY Follow-up/Referrals: Nader Patel MD [Primary Care Provider, [facility]] Time of Disposition: 09:47 Quality [place] Coma Scale Eyes: Open Verbal: Oriented and Alert Motor: Follows Commands Eneida Coma Total Score: 15
[2025-08-13 09:32] LABS: EDCOVIDSCREEN Negative (Negative); EDINFLUASCREEN Negative (Negative); EDINFLUBSCREEN Negative (Negative); EDSTREPNEGPOS1 Negative (Negative)
== END 2025-08-13 09:53 | disposition home or self-care (01) ==
PROVIDERS: Emergency Provider Registered Nurse; PCP Emergency Medicine
DX: J06.9 Acute upper respiratory infection, unspecified (principal); J02.9 Acute pharyngitis, unspecified; Z20.822 Contact with and (suspected) exposure to COVID-19; E78.5 Hyperlipidemia, unspecified
CPT/HCPCS: 87081; 87426; 87804; 87880; 99213; G0463